=== PATIENT | female | born 1960 | race Caucasian/White ===

== ENCOUNTER 2025-08-17 07:29 | Inpatient (IN) ==
--- NOTE | 2025-08-17 08:03 | Emergency Department Note ---
History of Present Illness General Chief complaint: Knee Injury/Pain Stated complaint: LEFT KNEE PAIN Time Seen by Provider: 08/17/25 07:35 History of Present Illness Patient is a 65-year-old female with past medical history significant for prediabetes and dyslipidemia who presents to the emergency department accompanied by her for evaluation of left knee pain. Knee pain started 2 days ago, without inciting incident or trauma. She states "I just woke up with it." She took some ibuprofen, tried to elevate and rest the knee, but pain was getting worse and she was having trouble walking and putting pressure on it. She developed nausea, chills, headache and anorexia yesterday, but did not check her temperature. She has not developed any cold or URI symptoms. No vomiting, no urinary symptoms. No diarrhea. 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 She was seen at the [facility] office yesterday, no x-rays were performed, no interventions suggested but they were setting her up for a left leg ultrasound today. Patient has furosemide which she can use as needed for lower extremity edema, she did take a dose of this 2 days ago, but got some cramping in her calves afterwards. Upon arrival in the emergency department, she is found to be febrile, temperature 37.9 C orally. She is tachycardic in the 130s. [place] but denies any known tick bites recently. No skin rashes. No neck pain or stiffness. Home Medications Medication Instructions Recorded Confirmed Type cyanocobalamin (vitamin B-12) 1,000 mcg PO DAILY 08/17/25 08/17/25 History 1,000 mcg tablet furosemide 20 mg tablet 20 mg PO UD PRN Edema 08/17/25 08/17/25 History metformin 500 mg tablet 500 mg PO DAILY 08/17/25 08/17/25 History rosuvastatin 20 mg tablet 20 mg PO DAILY 08/17/25 08/17/25 History tramadol 50 mg tablet 50 mg PO Q6H PRN Pain 08/17/25 08/17/25 History Allergies Allergy/AdvReac Type Severity Reaction Status Date / Time No Known Allergies Allergy Mild Verified 02/27/08 13:09 Past Med/Surg History Problem List (Updated 08/17/25 @ 16:39 by Marycarmen Smith) Acute deep vein thrombosis (DVT) of left lower extremity (Acute) Acute pain of left knee (Acute) Leukocytosis (Acute) Tachycardia (Acute) Fever (Acute) SIRS (systemic inflammatory response syndrome) Acute DVT (deep venous thrombosis) Medical History Dyslipidemia Diabetes Surgical History H/O tubal ligation Social History Smoking Status: Never smoker Hx Alcohol Use: No Hx Substance Use: No Trim Mounter Required: No Beliefs That Will Affect Care: None Current Living Situation: Spouse Feels Safe at Home: Yes Assistive Devices: Glasses Review of Systems A total of 10 systems reviewed and were otherwise negative Physical Exam Vital Signs Vital Signs - 24 hr 08/17/25 07:32 08/17/25 07:57 08/17/25 08:00 Temperature 37.9 C H Temperature Source Oral Pulse Rate 137 H 132 H 132 H Pulse Rate from SpO2 Sensor 132 H Respiratory Rate 18 17 Respiratory Effort / Characteristics Non-Labored Spontaneous Respiratory Depth Normal Respiratory Pattern Regular Blood Pressure 128/82 Blood Pressure Mean 97 Pulse Oximetry 94 94 Oxygen Delivery Method Room Air Sepsis Recent Fever Within 48 Hours No Sepsis New/Unexplained Change in Mental Status No Sepsis Action Taken by Nursing No Action Required 08/17/25 08:07 08/17/25 08:15 08/17/25 08:17 Temperature Temperature Source Pulse Rate 132 H 128 H Pulse Rate from SpO2 Sensor 132 H Respiratory Rate 22 Respiratory Effort / Characteristics Respiratory Depth Respiratory Pattern Blood Pressure 131/82 Blood Pressure Mean 96 Pulse Oximetry 94 Oxygen Delivery Method Room Air Sepsis Recent Fever Within 48 Hours Sepsis New/Unexplained Change in Mental Status Sepsis Action Taken by Nursing 08/17/25 08:30 08/17/25 08:59 08/17/25 09:00 Temperature 37.5 C Temperature Source Oral Pulse Rate Pulse Rate from SpO2 Sensor Respiratory Rate Respiratory Effort / Characteristics Respiratory Depth Respiratory Pattern Blood Pressure 109/70 115/68 Blood Pressure Mean 81 80 Pulse Oximetry Oxygen Delivery Method Sepsis Recent Fever Within 48 Hours Sepsis New/Unexplained Change in Mental Status Sepsis Action Taken by Nursing 08/17/25 09:06 08/17/25 09:24 08/17/25 09:30 Temperature Temperature Source Pulse Rate 108 H 105 H Pulse Rate from SpO2 Sensor 108 H 106 H Respiratory Rate 23 18 Respiratory Effort / Characteristics Respiratory Depth Respiratory Pattern Blood Pressure 105/62 Blood Pressure Mean 72 Pulse Oximetry 91 93 Oxygen Delivery Method Room Air Room Air Sepsis Recent Fever Within 48 Hours Sepsis New/Unexplained Change in Mental Status Sepsis Action Taken by Nursing 08/17/25 09:33 08/17/25 10:00 08/17/25 10:00 Temperature Temperature Source Pulse Rate 102 H 112 H Pulse Rate from SpO2 Sensor 101 H 112 H Respiratory Rate 22 21 Respiratory Effort / Characteristics Respiratory Depth Respiratory Pattern Blood Pressure 136/82 Blood Pressure Mean 96 Pulse Oximetry 92 94 Oxygen Delivery Method Room Air Room Air Sepsis Recent Fever Within 48 Hours Sepsis New/Unexplained Change in Mental Status Sepsis Action Taken by Nursing CONSTITUTIONAL: Patient is a well-appearing 65-year-old female who is awake and alert and seated on the gurney. at the bedside. She is nontoxic in appearance. EYES: Pupils equal, round, reactive to light and accommodation. EOMs intact without nystagmus. Sclera are anicteric. ENT: Tympanic membranes intact, with normal landmarks. External canals are clear. Oral and nasopharynx are clear. Mucous membranes are moist, no lesions, tongue and gums appear normal. NECK: Supple without lymphadenopathy. No thyromegaly. No meningeal signs. Full active range of motion without discomfort. CARDIOVASCULAR: Tachycardic but regular. Peripheral pulses easy to palpable. RESPIRATORY: Breath sounds equal and clear to auscultation without wheezes, rales, or rhonchi heard. Full and equal chest expansion without accessory muscle use or retractions. GI: Bowel sounds are present. Abdomen is soft, nontender, nondistended. No organomegaly. No pulsatile masses. No guarding or rebound. MUSCULOSKELETAL: Examination of the left knee does not reveal any obvious deformity. There is no significant soft tissue swelling, no knee joint effusion. His skin is intact, without erythema, there is no increased warmth. Range of motion is full, with discomfort with full flexion. No significant ligamentous instability is appreciated. Calf is soft and nontender. No palpable cords. No pitting edema. No lymphangitic streaking. INTEGUMENTARY: No lesions or rash, normal skin turgor. NEUROLOGICAL: Alert, oriented, and cooperative. Cranial nerves, sensation and strength grossly intact. Pupils round, equal, and react to light, EOMs are full. LYMPH: No lymphadenopathy. Course Course The patient was seen and assessed as above. She has no old records at our facility for review. She presents to the emergency department for evaluation of acute left knee pain. On presentation, she was found to be febrile and tachycardic. She is endorsing some nausea, headache chills and anorexia as well. She did not know that she was febrile until arrival in the ED. IV lock was initiated and laboratory studies were collected. Chest x-ray, left knee x-ray and ultrasound of the left lower extremity were performed. EKG was obtained. She was treated with a liter bolus of normal saline solution and 1 g of Tylenol p.o. for fever. Case reviewed with attending physician, Dr. Madden who agrees with and collaborates with the ED workup. Diagnostics, as interpreted by me: Laboratory studies: Elevated white count at 2 22,200 with left shift. H&H normal. ESR elevated at 62. C-reactive protein elevated at 7.4. No significant electrolyte imbalance requiring correction. Renal functions are not elevated. Lactate normal at 1.8. Procalcitonin level is not elevated. Nasal swab for COVID/influenza/RSV negative. Lyme screen negative. Anaplasmosis and babesiosis smears are negative with PCR testing pending. ECG: Sinus tachycardia, 138 bpm, no acute ischemic changes, no old EKGs available for comparison Cardiac monitoring: An order was placed for continuous cardiac monitoring. The monitor shows a sinus tachycardia in the 130s per my interpretation. Imaging studies: Left lower extremity ultrasound notes nonocclusive thrombus in the left popliteal vein concerning for small DVT. Left knee x-ray mild degenerative changes, no acute fracture, no significant effusion. Chest x-ray clear, no infiltrate or consolidation. All laboratory and diagnostic imaging studies reviewed with Dr. Madden. She was treated with Zosyn IV. Nasal MRSA swab ordered. Laboratory and diagnostic imaging studies reviewed with the patient and her spouse at length, and given findings I do recommend admission for further care and workup. She was agreeable. Patient was reviewed with the [facility] hospitalist service. After discussion with them, an upper respiratory BioFire was performed, which per my interpretation was negative. They are agreeable to admit for inpatient care. Please refer to their orders for more information. Chronic conditions affecting care: Dyslipidemia, prediabetes Differential diagnosis: Viral illness, pneumonia, bronchitis, tickborne illness, septic joint, SIRS, sepsis, among others. Administered Medications Acetaminophen (Acetaminophen 500 Mg Tab) 1,000 mg PO Q8H JOSSELINE Stop: 09/16/25 15:59 Last Admin: 08/17/25 16:21 Dose: 1,000 mg Documented By: wilfredo Heparin Sodium/Dextrose (Heparin 02601 Unit/500 Ml D5w) 25,000 units in 500 mls @ 25 mls/hr IV .Q20H JOSSELINE; Protocol Stop: 09/16/25 11:16 Last Admin: 08/17/25 11:49 Dose: 1,250 units/hr, 25 mls/hr Documented By: PATRICK Co-signed By: QGV Insulin Aspart (Insulin Aspart Per Unit Charge) 0 units SC ACHS JOSSELINE Stop: 09/16/25 14:21 Last Admin: 08/17/25 14:59 Dose: Not Given Documented By: wilfredo Discontinued Medications Acetaminophen (Acetaminophen 500 Mg Tab) 1,000 mg PO NOW STA Stop: 08/17/25 07:56 Last Admin: 08/17/25 08:05 Dose: 1,000 mg Documented By: CHRISTIANO Heparin Sodium (Porcine) (Heparin Sod (Porcine) 1000 Unit/Ml) 1 units IV NOW ONE Stop: 08/17/25 11:17 Last Admin: 08/17/25 11:49 Dose: 6,000 units Documented By: PATRICK Co-signed By: QGV Heparin Sodium/Dextrose (Heparin Iv Adult Wt-Based Standard W/ Initial Bolus Protocol) 1 each IV NOW STA; Protocol Stop: 08/17/25 10:57 Last Admin: 08/17/25 11:56 Dose: Not Given Documented By: PATRICK Sodium Chloride (Nss) 1,000 mls @ 999 mls/hr IV .Q1H1M JOSSELINE Stop: 08/17/25 09:00 Last Infusion: 08/17/25 10:28 Dose: Infused Documented By: Admin: 08/17/25 08:04 Dose: 999 mls/hr Documented By: CHRISTIANO Piperacillin Sod/Tazobactam Sod (Zosyn) 4.5 gm in 100 mls @ 200 mls/hr IV NOW ONE; Protocol Stop: 08/17/25 09:50 Last Infusion: 08/17/25 10:37 Dose: Infused Documented By: Admin: 08/17/25 10:07 Dose: 200 mls/hr Documented By: CHRISTIANO Lactated Ringer's (Lr) 1,000 mls @ 999 mls/hr IV .Q1H1M ONE Stop: 08/17/25 16:07 Last Admin: 08/17/25 15:39 Dose: 999 mls/hr Documented By: wilfredo Ioversol (Optiray 320 125ml) 119 ml IV ONCE ONE Stop: 08/17/25 11:16 Last Admin: 08/17/25 11:15 Dose: 119 ml Documented By: NANDINI Ondansetron HCl (Ondansetron Inj 2 Mg/Ml 2 Ml Vial) 4 mg IV NOW STA Stop: 08/17/25 07:56 Last Admin: 08/17/25 08:05 Dose: 4 mg Documented By: CHRISTIANO Potassium Chloride (Potassium Chloride Crtab 20 Meq Tabcr) 40 meq PO NOW ONE Stop: 08/17/25 12:26 Last Admin: 08/17/25 13:25 Dose: 40 meq Documented By: NEHAL Medical Decision Making Differential Diagnosis See ED Course. Medical Records Attestation: I reviewed the patient's medical records. Home Medications Current Medication List: was personally reviewed by me Laboratory Data Attestation: I reviewed the patient's lab results. 08/17/25 08:06 08/17/25 09:15 Lab Results 08/17/25 08/17/25 08/17/25 Range/Units 08:06 08:06 08:06 WBC 22.27 H (4.8-10.8) K/ul RBC 4.89 (4.20-5.40) M/uL Hgb 14.3 (12.0-16.0) g/dl Hct 42.5 (37.0-47.0) % MCV 86.9 (80.0-100.0) fL MCH 29.2 (25.0-34.0) pg MCHC 33.6 (32.0-36.0) g/dL RDW Std Deviation 41.3 (36.4-46.3) fL RDW Coeff of Sabino 13.2 (11.5-14.5) % Plt Count 302 (130-400) K/uL MPV 9.5 (9.4-12.4) fL Immature Gran % (Auto) 0.5 % Neut % (Auto) 84.9 % Lymph % (Auto) 6.2 % Brooke % (Auto) 8.2 % Eos % (Auto) 0.0 % Baso % (Auto) 0.2 % Neut # (Auto) 18.90 H (1.40-6.50) K/uL Lymph # (Auto) 1.37 (1.20-3.40) K/uL Brooke # (Auto) 1.83 H (0.11-0.59) K/uL Eos # (Auto) 0.00 (0.00-0.50) K/uL Baso # (Auto) 0.05 (0.00-0.20) K/uL Immature Gran # (Auto) 0.12 (0.01-0.20) K/uL ESR 62 H (0-30) mm/hr PT 11.4 (9.0-12.0) Seconds INR 1.1 (0.9-1.1) APTT 26 (21-31) Seconds PTT Ratio 1.0 Sodium (136-145) mmol/L Potassium (3.5-5.1) mmol/L Chloride (98-107) mmol/L Carbon Dioxide (21-32) mmol/L Anion Gap (3-11) BUN (6-23) mg/dl Creatinine (0.6-1.2) mg/dl Est Cr Clr Drug Dosing ml/min eGFR BUN/Creatinine Ratio (10-20) Glucose (70-99(Fasting)) mg/dl Lactate (0.4-2.0) mmol/L Calcium (8.6-10.3) mg/dl Magnesium (1.7-2.4) mg/dl Total Bilirubin (0.2-1.0) mg/dl Direct Bilirubin (0-0.2) mg/dl AST (13-39) U/L ALT (7-52) U/L Alkaline Phosphatase (34-104) U/L Troponin I High Sens (0-14) pg/ml C-Reactive Protein (0-0.5) mg/dl Total Protein (6.0-8.3) gm/dl Albumin (3.4-5.0) gm/dl Procalcitonin 0.13 (0-0.5) ng/ml Nasal Screen MRSA (PCR) (Negative) Adenovirus (PCR) Not Detected (NotDetected) Anaplasma Smear See Comment Babesia Smear See Comment B. pertussis DNA (PCR) Not Detected (NotDetected) B.parapertussis DNA PCR Not Detected (NotDetected) Lyme Disease Screen Negative (Negative) C. pneumoniae DNA (PCR) Not Detected (NotDetected) Coronavirus OC43 (PCR) Not Detected (NotDetected) Coronavirus HKU1 (PCR) Not Detected (NotDetected) Coronavirus 229E (PCR) Not Detected (NotDetected) SARS-CoV-2 (PCR) NEGATIVE Not Detected (Negative) Coronavirus NL63 (PCR) Not Detected (NotDetected) Human Metapneumovir PCR Not Detected (NotDetected) Influenza Type A (PCR) Negative Not Detected (Neg) Influenza Type B (PCR) Negative (Neg) M. pneumoniae (PCR) (NotDetected) Parainfluenza 1 (PCR) (NotDetected) Parainfluenza 2 (PCR) (NotDetected) Parainfluenza 3 (PCR) (NotDetected) Parainfluenza 4 (PCR) (NotDetected) RSV (RT-PCR) (Neg) RSV (PCR) (NotDetected) Entero/Rhino (PCR) (NotDetected) 08/17/25 08/17/25 08/17/25 Range/Units 08:06 08:11 09:15 WBC (4.8-10.8) K/ul RBC (4.20-5.40) M/uL Hgb (12.0-16.0) g/dl Hct (37.0-47.0) % MCV (80.0-100.0) fL MCH (25.0-34.0) pg MCHC (32.0-36.0) g/dL RDW Std Deviation (36.4-46.3) fL RDW Coeff of Sabino (11.5-14.5) % Plt Count (130-400) K/uL MPV (9.4-12.4) fL Immature Gran % (Auto) % Neut % (Auto) % Lymph % (Auto) % Brooke % (Auto) % Eos % (Auto) % Baso % (Auto) % Neut # (Auto) (1.40-6.50) K/uL Lymph # (Auto) (1.20-3.40) K/uL Brooke # (Auto) (0.11-0.59) K/uL Eos # (Auto) (0.00-0.50) K/uL Baso # (Auto) (0.00-0.20) K/uL Immature Gran # (Auto) (0.01-0.20) K/uL ESR (0-30) mm/hr PT (9.0-12.0) Seconds INR (0.9-1.1) APTT (21-31) Seconds PTT Ratio Sodium 136 (136-145) mmol/L Potassium 3.4 L (3.5-5.1) mmol/L Chloride 101 (98-107) mmol/L Carbon Dioxide 26 (21-32) mmol/L Anion Gap 9 (3-11) BUN 24 H (6-23) mg/dl Creatinine 0.69 (0.6-1.2) mg/dl Est Cr Clr Drug Dosing 88.2 ml/min eGFR 95.66 BUN/Creatinine Ratio 34.8 H (10-20) Glucose 134 H (70-99(Fasting)) mg/dl Lactate 1.8 (0.4-2.0) mmol/L Calcium 8.5 L (8.6-10.3) mg/dl Magnesium 1.7 (1.7-2.4) mg/dl Total Bilirubin 0.8 (0.2-1.0) mg/dl Direct Bilirubin 0.1 (0-0.2) mg/dl AST 11 L (13-39) U/L ALT 13 (7-52) U/L Alkaline Phosphatase 77 (34-104) U/L Troponin I High Sens 6.0 (0-14) pg/ml C-Reactive Protein 7.43 H (0-0.5) mg/dl Total Protein 7.1 (6.0-8.3) gm/dl Albumin 3.9 (3.4-5.0) gm/dl Procalcitonin (0-0.5) ng/ml Nasal Screen MRSA (PCR) (Negative) Adenovirus (PCR) (NotDetected) Anaplasma Smear Babesia Smear B. pertussis DNA (PCR) (NotDetected) B.parapertussis DNA PCR (NotDetected) Lyme Disease Screen (Negative) C. pneumoniae DNA (PCR) (NotDetected) Coronavirus OC43 (PCR) (NotDetected) Coronavirus HKU1 (PCR) (NotDetected) Coronavirus 229E (PCR) (NotDetected) SARS-CoV-2 (PCR) (Negative) Coronavirus NL63 (PCR) (NotDetected) Human Metapneumovir PCR (NotDetected) Influenza Type A (PCR) (Neg) Influenza Type B (PCR) Not Detected (Neg) M. pneumoniae (PCR) Not Detected (NotDetected) Parainfluenza 1 (PCR) Not Detected (NotDetected) Parainfluenza 2 (PCR) Not Detected (NotDetected) Parainfluenza 3 (PCR) Not Detected (NotDetected) Parainfluenza 4 (PCR) Not Detected (NotDetected) RSV (RT-PCR) Negative (Neg) RSV (PCR) Not Detected (NotDetected) Entero/Rhino (PCR) Not Detected (NotDetected) 08/17/25 Range/Units 10:12 WBC (4.8-10.8) K/ul RBC (4.20-5.40) M/uL Hgb (12.0-16.0) g/dl Hct (37.0-47.0) % MCV (80.0-100.0) fL MCH (25.0-34.0) pg MCHC (32.0-36.0) g/dL RDW Std Deviation (36.4-46.3) fL RDW Coeff of Sabino (11.5-14.5) % Plt Count (130-400) K/uL MPV (9.4-12.4) fL Immature Gran % (Auto) % Neut % (Auto) % Lymph % (Auto) % Brooke % (Auto) % Eos % (Auto) % Baso % (Auto) % Neut # (Auto) (1.40-6.50) K/uL Lymph # (Auto) (1.20-3.40) K/uL Brooke # (Auto) (0.11-0.59) K/uL Eos # (Auto) (0.00-0.50) K/uL Baso # (Auto) (0.00-0.20) K/uL Immature Gran # (Auto) (0.01-0.20) K/uL ESR (0-30) mm/hr PT (9.0-12.0) Seconds INR (0.9-1.1) APTT (21-31) Seconds PTT Ratio Sodium (136-145) mmol/L Potassium (3.5-5.1) mmol/L Chloride (98-107) mmol/L Carbon Dioxide (21-32) mmol/L Anion Gap (3-11) BUN (6-23) mg/dl Creatinine (0.6-1.2) mg/dl Est Cr Clr Drug Dosing ml/min eGFR BUN/Creatinine Ratio (10-20) Glucose (70-99(Fasting)) mg/dl Lactate (0.4-2.0) mmol/L Calcium (8.6-10.3) mg/dl Magnesium (1.7-2.4) mg/dl Total Bilirubin (0.2-1.0) mg/dl Direct Bilirubin (0-0.2) mg/dl AST (13-39) U/L ALT (7-52) U/L Alkaline Phosphatase (34-104) U/L Troponin I High Sens (0-14) pg/ml C-Reactive Protein (0-0.5) mg/dl Total Protein (6.0-8.3) gm/dl Albumin (3.4-5.0) gm/dl Procalcitonin (0-0.5) ng/ml Nasal Screen MRSA (PCR) Negative (Negative) Adenovirus (PCR) (NotDetected) Anaplasma Smear Babesia Smear B. pertussis DNA (PCR) (NotDetected) B.parapertussis DNA PCR (NotDetected) Lyme Disease Screen (Negative) C. pneumoniae DNA (PCR) (NotDetected) Coronavirus OC43 (PCR) (NotDetected) Coronavirus HKU1 (PCR) (NotDetected) Coronavirus 229E (PCR) (NotDetected) SARS-CoV-2 (PCR) (Negative) Coronavirus NL63 (PCR) (NotDetected) Human Metapneumovir PCR (NotDetected) Influenza Type A (PCR) (Neg) Influenza Type B (PCR) (Neg) M. pneumoniae (PCR) (NotDetected) Parainfluenza 1 (PCR) (NotDetected) Parainfluenza 2 (PCR) (NotDetected) Parainfluenza 3 (PCR) (NotDetected) Parainfluenza 4 (PCR) (NotDetected) RSV (RT-PCR) (Neg) RSV (PCR) (NotDetected) Entero/Rhino (PCR) (NotDetected) Imaging Data Attestation: I personally reviewed and interpreted this imaging study as follows: Radiologist's Impression: Chest X-Ray 08/17/25 07:55 XR chest 1V portable CLINICAL HISTORY: Sepsis COMPARISON STUDY: None FINDINGS: Heart size and pulmonary vasculature are normal. No consolidation or pleural effusion. No pneumothorax. IMPRESSION: No acute findings. ACT 112: Negative or not required by law. Electronically signed by: Artie Ewing M.D. 08/17/2025 8:24 AM Knee X-Ray 08/17/25 07:55 XR knee LT 3V CLINICAL HISTORY: PAIN, NO INJURY COMPARISON: 08/15/2020 FINDINGS: There is a mild joint effusion. No fracture or dislocation seen. There is minimal osteoarthritis. IMPRESSION: No fracture seen. ACT 112: Negative or not required by law. Electronically signed by: Artie Ewing M.D. 08/17/2025 8:25 AM Venous Doppler Study 08/17/25 07:55 LEFT LOWER EXTREMITY VENOUS DOPPLER HISTORY: LEFT LEG PAIN AND SWELLING COMPARISON STUDY: None FINDINGS: There is a small amount of nonocclusive thrombus adjacent to valve proximal left popliteal vein. No other evidence of DVT seen at the left lower extremity. IMPRESSION: Small amount of nonocclusive DVT left popliteal vein. . ACT 112: Negative or not required by law. Electronically signed by: Artie Ewing M.D. 08/17/2025 9:11 AM MDM Narrative See ED Course. Impression & Plan Fever, Tachycardia, Leukocytosis, Acute pain of left knee, Acute deep vein thrombosis (DVT) of left lower extremity Discharge Plan Visit Data Chief Complaint: Knee Injury/Pain Stated Complaint: LEFT KNEE PAIN ED Provider: Luc Madden ED Midlevel Provider: Marycarmen Smith Discharge Problem: Fever, Tachycardia, Leukocytosis, Acute pain of left knee, Acute deep vein thrombosis (DVT) of left lower extremity Patient Disposition: Admitted As Inpatient Condition: Fair Discharge Instructions Interventions: ED Discharge Assessment Last Done: 08/17/25 13:56
[2025-08-17] MEDS: SODIUM CHLORIDE 0.9% 1,000 ML IV SCH (08:04)
[2025-08-17] MEDS: ACETAMINOPHEN 500 MG TAB PO STA (08:05)
[2025-08-17] MEDS: ONDANSETRON INJ 2 MG/ML 2 ML VIAL IV STA (08:05)
--- NOTE | 2025-08-17 08:25 | XRay Report ---
XR chest 1V portable CLINICAL HISTORY: Sepsis COMPARISON STUDY: None FINDINGS: Heart size and pulmonary vasculature are normal. No consolidation or pleural effusion. No p neumothorax. IMPRESSION: No acute findings. ACT 112: Negative or not required by law. Electronically signed by: Artie Ewing M.D. 08/17/2025 8:24 AM
--- NOTE | 2025-08-17 08:26 | XRay Report ---
XR knee LT 3V CLINICAL HISTORY: PAIN, NO INJURY COMPARISON: 08/15/2020 FINDINGS: There is a mild joint effusion. No fracture or dislocation seen. There is minimal osteoart hritis. IMPRESSION: No fracture seen. ACT 112: Negative or not required by law. Electronically signed by: Artie Ewing M.D. 08/17/2025 8:25 AM
[2025-08-17 08:30] LABS: Hematocrit (blood only) 42.5 % (37.0-47.0); Hemoglobin 14.3 g/dl (12.0-16.0); Immature Granulocytes # (auto) 0.12 K/uL (0.01-0.20); Immature Granulocytes % (auto) 0.5 %; Mean Corpuscular Hemoglobin 29.2 pg (25.0-34.0); Mean Corpuscular Volume 86.9 fL (80.0-100.0); Platelet Count 302 K/uL (130-400); RDW Standard Deviation 41.3 fL (36.4-46.3); Red Blood Count 4.89 M/uL (4.20-5.40); White Blood Count 22.27 K/ul (4.8-10.8)
[2025-08-17 08:51] LABS: Procalcitonin 0.13 ng/ml (0-0.5)
[2025-08-17 09:11] LABS: Influenza A virus by PCR Negative (Neg); Influenza B virus by PCR Negative (Neg); SARS CoV2 RNA(COVID-19) Ceph NEGATIVE (Negative)
--- NOTE | 2025-08-17 09:12 | Ultrasound Report ---
LEFT LOWER EXTREMITY VENOUS DOPPLER HISTORY: LEFT LEG PAIN AND SWELLING COMPARISON STUDY: None FINDINGS: There is a small amount of nonocclusive thrombus adjacent to valve proximal left popliteal vein. No other evidence of DVT seen at the left lower extremity. IMPRESSION: Small amount of nonocclusive DVT left popliteal vein. . ACT 112: Negative or not required by law. Electronically signed by: Artie Ewing M.D. 08/17/2025 9:11 AM
[2025-08-17 09:18] LABS: Lyme Screen Rflx Confirmation Negative (Negative)
[2025-08-17 09:57] LABS: Alanine Aminotransferase 13.0 U/L (7-52); Albumin Level 3.9 gm/dl (3.4-5.0); Alkaline Phosphatase 77.0 U/L (34-104); Anion Gap 9.0 (3-11); Bilirubin,Total 0.8 mg/dl (0.2-1.0); Blood Urea Nitrogen 24.0 mg/dl (6-23); Calcium 8.5 mg/dl (8.6-10.3); Carbon Dioxide 26.0 mmol/L (21-32); Chloride 101.0 mmol/L (98-107); Creatinine Clr Calc Pharmacy 88.2 ml/min; Glucose 134.0 mg/dl (70-99(Fasting)); Magnesium 1.7 mg/dl (1.7-2.4); Potassium 3.4 mmol/L (3.5-5.1); Sodium 136.0 mmol/L (136-145); Total Protein 7.1 gm/dl (6.0-8.3)
[2025-08-17] MEDS: PIPERACILLIN/TAZOBACTAM 4.5 GM/100 ML BAG IV ONE (10:07)
[2025-08-17] MEDS: OPTIRAY 320 125ml IV ONE (11:15)
[2025-08-17 11:25] LABS: Chlamydia pneumoniae PCR Not Detected (NotDetected); Coronavirus 229E PCR Not Detected (NotDetected); Coronavirus CoV-2 (COVID19)PCR Not Detected (NotDetected); Coronavirus HKU1 PCR Not Detected (NotDetected); Coronavirus NL63 PCR Not Detected (NotDetected); Coronavirus OC43PCR Not Detected (NotDetected); Human Metapneumovirus PCR Not Detected (NotDetected); Parainfluenza Virus 1 PCR Not Detected (NotDetected); Parainfluenza Virus 2 PCR Not Detected (NotDetected); Parainfluenza Virus 3 PCR Not Detected (NotDetected); Parainfluenza Virus 4 PCR Not Detected (NotDetected); Respiratory Syncytial VirusPCR Not Detected (NotDetected); Rhinovirus/Enterovirus PCR Not Detected (NotDetected)
--- NOTE | 2025-08-17 11:25 | CT Scan Report ---
CT ANGIOGRAM OF THE CHEST CLINICAL HISTORY: Sepsis. DVT. Chest pain. Evaluate for pulmonary embolus. COMPARISON STUDY: Chest radiograph performed earlier today. TECHNIQUE: Following the IV administration of 119 cc of Optiray 320, CT angiogram of the chest was pe rformed from the upper abdomen to the thoracic inlet utilizing the pulmonary embolus protocol. Images are reviewed in the axial, sagittal, and coronal planes. 3-D MIPS images are created and assessed. I V contrast was administered without complication. A dose lowering technique was utilized adhering to the principles of ALARA. CT DOSE: 890.56 mGy.cm FINDINGS: No pulmonary emboli are identified. There is no thoracic aortic dissection. The heart is mi ldly enlarged. There is no pericardial effusion. No enlarged thoracic lymph nodes are present. The ce ntral airways are patent. There is no pneumothorax or pleural effusion. There is no consolidation. No suspicious pulmonary nodules are present. Visualized portions of the upper abdomen are unremarkable. IMPRESSION: 1. No pulmonary emboli identified. 2. No acute intrathoracic findings. ACT 112: Negative or not required by law. Electronically signed by: Bebeto Smith M.D. 08/17/2025 11:22 AM
[2025-08-17 11:39] LABS: INR 1.1 (0.9-1.1); Partial Thromboplastin Time 26 Seconds (21-31); Prothrombin Time 11.4 Seconds (9.0-12.0)
[2025-08-17] MEDS: HEPARIN SOD (PORCINE) 1000 UNIT/ML IV ONE (11:49)
[2025-08-17] MEDS: HEPARIN 25000 UNIT/500 ML D5W 25,000 UNITS/500 ML BAG IV SCH (11:49)
[2025-08-17] MEDS: Heparin IV Adult Wt-Based Standard w/ INITIAL Bolus Protocol IV STA (11:56)
--- NOTE | 2025-08-17 12:29 | History & Physical Report ---
Date of Service August 17, 2025 Assessment & Plan (1) Acute DVT (deep venous thrombosis): (2) SIRS (systemic inflammatory response syndrome): Plan: Admit to [facility] with telemetry Patient presenting from home for evaluation of left knee pain. Upon presentation , patient had low-grade temp of 37.9 and tachycardic in the 130s. Labs show WBC 22K, ESR 62, CRP 7.4. BioFire negative, Lyme testing negative, initial Anaplasma and Babesia negative. CXR unremarkable. Left knee x-ray shows a mild joint effusion, otherwise unremarkable. LLE Doppler shows small amount of nonocclusive DVT left popliteal vein. Patient was given Tylenol, IV Zofran, IV Zosyn, IVF. SIRS criteria - tachycardia, leukocytosis, low-grade fever CTA chest negative for PE Suspect SIRS due to acute DVT. Low suspicion for other infectious source at this time. Blood cultures pending. UA pending although no urinary symptoms. Received IV zosyn in the ED, however will hold on additional antibiotics at this point. Start IV Heparin with likely transition to DOAC pending insurance approval. Patient reports daily heavt NSAID use - advised she will need to avoid NSAIDs due to anticoagulation. (3) Diabetes: Plan: HgbA1c 5.5 12/2024 Hold metformin and utilize NovoLog per protocol while hospitalized Update A1c with a.m. labs (4) Dyslipidemia: Plan: continue [employer] statin DVT PROPHYLAXIS IV heparin as above Patient seen in collaboration with Dr. Whalen. I spent a total of 75 minutes coordinating, documenting, and providing care for this patient excluding time spent in the performance of separately billed services. This included personally reviewing all current laboratories and imaging studies, medication reconciliation, outpatient chart review, and discussion with specialists. History of Present Illness Chief Complaint: Left knee pain Primary Care Provider: Yulissa Abraham PA-C 65-year-old female with PMH HLD, prediabetes, and other problems listed below who presents to the ED for evaluation of left knee pain. Patient reports her symptoms began 3 days ago. She was seen at her PCPs office, patient suspected she had a Lyons's cyst. Ultrasound was ordered however has not been completed. Patient presented to the ED due to ongoing left knee pain. Yesterday patient reports she had flulike symptoms with generalized fatigue, feeling feverish, and poor appetite. Patient reports a 2-hour car ride this previous weekend, denies any other recent extended travel. No known sick contacts. Pain is located in the left posterior knee. She denies chest pain, palpitations, shortness of breath. No lightheadedness, dizziness, diaphoresis, syncopal events. Denies abdominal pain, vomiting, diarrhea. No urinary symptoms. Upon presentation, patient had low-grade temp of 37.9 and tachycardic in the 130s. Labs show WBC 22K, ESR 62, CRP 7.4. BioFire negative, Lyme testing negative, initial Anaplasma and Babesia negative. CXR unremarkable. Left knee x-ray shows a mild joint effusion, otherwise unremarkable. LLE Doppler shows small amount of nonocclusive DVT left popliteal vein. patient was given Tylenol, IV Zofran, IV Zosyn, IVF. Allergies Allergy/AdvReac Type Severity Reaction Status Date / Time No Known Allergies Allergy Mild Verified 02/27/08 13:09 Home Medications Medication Instructions Recorded Confirmed Type cyanocobalamin (vitamin B-12) 1,000 mcg PO DAILY 08/17/25 08/17/25 History 1,000 mcg tablet furosemide 20 mg tablet 20 mg PO UD PRN Edema 08/17/25 08/17/25 History metformin 500 mg tablet 500 mg PO DAILY 08/17/25 08/17/25 History rosuvastatin 20 mg tablet 20 mg PO DAILY 08/17/25 08/17/25 History tramadol 50 mg tablet 50 mg PO Q6H PRN Pain 08/17/25 08/17/25 History Past Med/Surg History Problem List (Updated 08/17/25 @ 12:39 by MICHELLE Scott) SIRS (systemic inflammatory response syndrome) Acute DVT (deep venous thrombosis) Medical History Dyslipidemia Diabetes Surgical History H/O tubal ligation Social History Smoking Status: Never smoker Hx Alcohol Use: No Hx Substance Use: No The[employer] Specialist Required: No Beliefs That Will Affect Care: None Current Living Situation: Spouse Feels Safe at Home: Yes Assistive Devices: Glasses Physical Exam Constitutional: WD/WN, vitals as above no acute distress Respiratory: normal respiratory effort, lungs clear to auscultation Cardiovascular: Rate/Rhythm: regular rhythm and + tachycardic Vessels: normal peripheral pulses Extremities: no edema Gastrointestinal (Abdomen): normal bowel sounds, soft, nontender, no hepatosplenomegaly Skin: no rashes, warm and dry Neurologic: no focal motor deficits Psychiatric: A+Ox3, euthymic affect Results & Data Results & Data Vital Signs (Past 12 Hours) Vital Signs Temp Pulse Resp BP Pulse Ox O2 Del Method 08/17/25 12:22 103 H 08/17/25 12:00 108 H 17 94 Room Air 08/17/25 12:00 127/80 08/17/25 11:30 105 H 15 97 Room Air 08/17/25 11:30 115/69 08/17/25 11:00 102/68 08/17/25 10:54 101 H 21 92 Room Air 08/17/25 10:33 114 H 17 94 Room Air 08/17/25 10:30 96/75 L 08/17/25 10:27 109 H 19 92 Room Air 08/17/25 10:00 112 H 21 94 Room Air 08/17/25 10:00 136/82 08/17/25 09:33 102 H 22 92 Room Air 08/17/25 09:30 105/62 08/17/25 09:24 105 H 18 93 Room Air 08/17/25 09:06 108 H 23 91 Room Air 08/17/25 09:00 115/68 08/17/25 08:59 37.5 C 08/17/25 08:30 109/70 08/17/25 08:17 128 H 08/17/25 08:15 132 H 22 94 Room Air 08/17/25 08:07 131/82 08/17/25 08:00 132 H 08/17/25 07:57 132 H 17 94 08/17/25 07:32 37.9 C H 137 H 18 128/82 94 Room Air Laboratory Results Short CBC 08/17/25 Range/Units 08:06 WBC 22.27 H (4.8-10.8) K/ul Hgb 14.3 (12.0-16.0) g/dl Hct 42.5 (37.0-47.0) % Plt Count 302 (130-400) K/uL [facility] 08/17/25 09:15 Sodium 136 Potassium 3.4 L Chloride 101 Carbon Dioxide 26 BUN 24 H Creatinine 0.69 Glucose 134 H Calcium 8.5 L Liver Function 08/17/25 Range/Units 09:15 Total Bilirubin 0.8 (0.2-1.0) mg/dl Direct Bilirubin 0.1 (0-0.2) mg/dl AST 11 L (13-39) U/L ALT 13 (7-52) U/L Alkaline Phosphatase 77 (34-104) U/L Albumin 3.9 (3.4-5.0) gm/dl Diagnostic Findings Short CBC 08/17/25 Range/Units 08:06 WBC 22.27 H (4.8-10.8) K/ul Hgb 14.3 (12.0-16.0) g/dl Hct 42.5 (37.0-47.0) % Plt Count 302 (130-400) K/uL [facility] 08/17/25 09:15 Sodium 136 Potassium 3.4 L Chloride 101 Carbon Dioxide 26 BUN 24 H Creatinine 0.69 Glucose 134 H Calcium 8.5 L Liver Function 08/17/25 Range/Units 09:15 Total Bilirubin 0.8 (0.2-1.0) mg/dl Direct Bilirubin 0.1 (0-0.2) mg/dl AST 11 L (13-39) U/L ALT 13 (7-52) U/L Alkaline Phosphatase 77 (34-104) U/L Albumin 3.9 (3.4-5.0) gm/dl Medications Administered Chest X-Ray 08/17/25 07:55 XR chest 1V portable CLINICAL HISTORY: Sepsis COMPARISON STUDY: None FINDINGS: Heart size and pulmonary vasculature are normal. No consolidation or pleural effusion. No pneumothorax. IMPRESSION: No acute findings. ACT 112: Negative or not required by law. Electronically signed by: Artie Ewing M.D. 08/17/2025 8:24 AM Knee X-Ray 08/17/25 07:55 XR knee LT 3V CLINICAL HISTORY: PAIN, NO INJURY COMPARISON: 08/15/2020 FINDINGS: There is a mild joint effusion. No fracture or dislocation seen. There is minimal osteoarthritis. IMPRESSION: No fracture seen. ACT 112: Negative or not required by law. Electronically signed by: Artie Ewing M.D. 08/17/2025 8:25 AM Venous Doppler Study 08/17/25 07:55 LEFT LOWER EXTREMITY VENOUS DOPPLER HISTORY: LEFT LEG PAIN AND SWELLING COMPARISON STUDY: None FINDINGS: There is a small amount of nonocclusive thrombus adjacent to valve proximal left popliteal vein. No other evidence of DVT seen at the left lower extremity. IMPRESSION: Small amount of nonocclusive DVT left popliteal vein. . ACT 112: Negative or not required by law. Electronically signed by: Artie Ewing M.D. 08/17/2025 9:11 AM Chest CTA 08/17/25 10:52 CT ANGIOGRAM OF THE CHEST CLINICAL HISTORY: Sepsis. DVT. Chest pain. Evaluate for pulmonary embolus. COMPARISON STUDY: Chest radiograph performed earlier today. TECHNIQUE: Following the IV administration of 119 cc of Optiray 320, CT an giogram of the chest was performed from the upper abdomen to the thoracic inlet utilizing the pulmonary embolus protocol. Images are reviewed in the axial, sagittal, and coronal planes. 3-D MIPS images are created and assessed. IV contrast was administered without complication. A dose lowering technique was utilized adhering to the principles of ALARA. CT DOSE: 890.56 mGy.cm FINDINGS: No pulmonary emboli are identified. There is no thoracic aortic dissection. The heart is mildly enlarged. There is no pericardial effusion. No enlarged thoracic lymph nodes are present. The central airways are patent. There is no pneumothorax or pleural effusion. There is no consolidation. No suspicious pulmonary nodules are present. Visualized portions of the upper abdomen are unremarkable. IMPRESSION: 1. No pulmonary emboli identified. 2. No acute intrathoracic findings. ACT 112: Negative or not required by law. Electronically signed by: Bebeto Smith M.D. 08/17/2025 11:22 AM Code Status & VTE Plan VTE Prophylaxis Plan VTE Prophylaxis will be ordered: No Supervising Physician Co-Signing Physician Notes Patient seen and examined at bedside. Patient having substantial left knee and left leg pain. On exam, mildly tender to palpation left knee, slight pain with movement of left knee, tenderness to palpation of left calf. Leukocytosis, fever, and tachycardia noted suggestive of sepsis like syndrome, elevated ESR/CRP could be reactionary to DVT noted on US of leg, CT chest unrevealing for PE. UA grossly concerning for UTI. PESI score intermediate. Patient presenting for left leg pain, found to have DVT of left leg, with sepsis like syndrome of unclear etiology. Potential sources include DVT (could have fevers, tachycardia, but does seem out of proportion to DVT size),T, complicated UTI (but not symptomatic), left knee (albeit exam not convincing), abdomen/pelvic source. Start ceftriaxone for empiric coverage of complicated UTI, start heparin for 24 hours given higher risk DVT and transition to eliquis in AM, start LR maintenance fluids given sepsis like picture. If not improvement in AM, consider ortho consult for left knee joint aspiration and CT abdomen/pelvis with contrast to search for alternative sources. Follow up culture results. PT/OT ordered given difficulty walking. I have seen and discussed the case with the collaborating advanced practitioner. I agree with the above H&P. I have reviewed and confirmed the patients medical history, the findings on physical examination, and the patients diagnosis and treatment plan with Beverly MARTINEZ and agree with the information documented. I spent a total of 40 minutes coordinating, documenting, and providing care for this patient excluding time spent in the performance of separately billed services. All of the aforementioned completed outside of collaborating with the assigned advanced practitioner for a full treatment plan. I have reviewed the advanced practitioner's documentation, and I agree with, and take responsibility for the plan of care
[2025-08-17] MEDS: POTASSIUM CHLORIDE CRTAB 20 MEQ TABCR PO ONE (13:25)
[2025-08-17 13:28] LABS: Appearance Urine Turbid (Clear); Bacteria Urine Automated 4+ (None Seen); Cast Urine Automated 0-2 /lpf (0-2); Glucose Urine UA Negative (Negative); RBC Urine Automated >20 /hpf (0-2); WBC Urine Automated >50 /hpf (0-5)
--- NOTE | 2025-08-17 13:39 | Electrocardiogram Report ---
Test Reason : Blood Pressure : */* mmHG Vent. Rate : 138 BPM Atrial Rate : 138 BPM P-R Int : 130 ms QRS Dur : 78 ms QT Int : 298 ms P-R-T Axes : 24 27 51 degrees QTcB Int : 451 ms Sinus tachycardia Otherwise normal ECG Confirmed by Ciro Saenz ([id number]) on 08/17/2025 1:39:32 PM Referred By: REFERRED SELF Confirmed By: Ciro Saenz
[2025-08-17] MEDS ORDERED: GLUCOSE 40% GEL 15 GM TUBE PO PRN (14:22)
[2025-08-17] MEDS ORDERED: DEXTROSE 50% 50 ML SYRINGE IV PRN (14:22)
[2025-08-17] MEDS ORDERED: CARBOHYDRATES FOR HYPOGLYCEMIA PO PRN (14:22)
[2025-08-17] MEDS ORDERED: GLUCOSE 10 TAB/TUBE PO PRN (14:22)
[2025-08-17] MEDS ORDERED: GLUCAGON FOR INJ 1 MG VIAL SQ PRN (14:22)
[2025-08-17] MEDS: INSULIN ASPART PER UNIT CHARGE SC SCH (14:59)
[2025-08-17] MEDS: LACTATED RINGER'S 1,000 ML IV ONE (15:39)
--- NOTE | 2025-08-17 15:43 | Communication Note ---
Date of Service: August 17, 2025 UA reviewed -- suggestive of UTI -- although patient denies urinary symptoms Ongoing tachycardia and low grade fever - will give an additional 1L IVF and start IV ceftriaxone If not improving, consider CT abd/pelvis and/or ortho eval for left knee septic arthritis - although exam is not convincing and only minimal effusion on XR. MICHELLE Scott Hospitalist
[2025-08-17] MEDS: ACETAMINOPHEN 500 MG TAB PO SCH (16:21)
[2025-08-17] MEDS ORDERED: VANCOMYCIN CONSULT ACTIVE PRN (16:48)
[2025-08-17] MEDS: cefTRIAXone SODIUM 2,000 MG/50 ML BAG IV SCH (17:01)
[2025-08-17] MEDS: OPTIRAY 320 100ml IV ONE (18:03)
[2025-08-17] MEDS: VANCOMYCIN HCL 2,000 MG in SODIUM CHLORIDE 0.9% 500 ML IV ONE (18:09)
[2025-08-17 18:25] LABS: ANTI-Xa, UFH(UnfractionatedHep 0.21 IU/ml (0.3-0.7)
--- NOTE | 2025-08-17 18:52 | CT Scan Report ---
EXAMINATION: CT of the abdomen and pelvis performed after the administration of IV contrast TECHNIQUE: Helical CT images from the lung bases through the symphysis pubis were obtained with contrast. Coronal and sagittal reformatted images were generated at a workstation for further assessment. Dose reduction techniques were achieved by using automatic exposure control and/or adjustment of mA and/or kV according to patient size and/or use of iterative reconstruction technique. COMPARISON: None HISTORY: Sepsis FINDINGS: Lower chest: No consolidation. No pleural effusion or pneumothorax. Liver: No suspicious liver lesions. Portal veins appear patent. Gallbladder: No gallstones. No evidence of acute cholecystitis. Spleen: Normal size. Pancreas: No suspicious pancreatic lesions. The pancreatic duct is not dilated. Adrenal glands: No adrenal nodules. 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 The superior moiety demonstrates severe atrophy with near complete loss of the renal cortex, and a prominently dilated pelvocaliceal system. The upper moiety ureter is also markedly dilated throughout. The upper portion of this ureter demonstrates prominent wall thickening, with severe stenosis of the lumen, and inflammatory fat stranding. 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 The left kidney demonstrates no hydronephrosis. There is a prominent area of striated hypoenhancement at the inferior pole of the left kidney. Bladder / Pelvic organs: Unremarkable. Bowel: No bowel obstruction. No abnormal bowel wall thickening. The appendix is unremarkable. Lymph nodes: No retroperitoneal, mesenteric, or pelvic lymphadenopathy. Peritoneum / Retroperitoneum: No free fluid or air within the abdomen. Vessels: No infrarenal aortic aneurysm. Bones and soft tissues: No suspicious lesion in the bones. 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 The upper portion of this ureter also demonstrates marked wall thickening and inflammatory fat stranding, which may be due to infective ureteritis, and with urothelial carcinoma not excluded. A striated area of hypoenhancement at the inferior left kidney, additionally is concerning for pyelonephritis. Electronically signed by Emmanuel Kelley 08-17-2025 6:52 PM
[2025-08-18 01:28] LABS: ANTI-Xa, UFH(UnfractionatedHep 0.17 IU/ml (0.3-0.7)
[2025-08-18] MEDS: HEPARIN SOD (PORCINE) 1000 UNIT/ML IV ONE ×2 (02:02→23:02)
[2025-08-18 02:16] LABS: A calco-baum cmplx NotReported Not Detected (NotDetected); Bact fragilis Not Reported Not Detected (NotDetected); Blood Culture Id Panel See PCR Comment (NotDetected); C auris Not Reported Not Detected (NotDetected); CTX-M Resistant Gene Not Detected (NotDetected); Calbicans Not Reported Not Detected (NotDetected); Candida glabrata Not Reported Not Detected (NotDetected); Candida krusei Not Reported Not Detected (NotDetected); Cneoformans/gatti Not Reported Not Detected (NotDetected); Cparapsilosis Not Reported Not Detected (NotDetected); Ctropicalis Not Reported Not Detected (NotDetected); E cloacae compx Not Reported Not Detected (NotDetected); Efaecalis Not Reported Not Detected (NotDetected); Efaecium Not Reported Not Detected (NotDetected); Enterobacterales DETECTED (NotDetected); Enterobacterales Not Reported DETECTED (NotDetected); Escherichia coli Not Reported DETECTED (NotDetected); H influenzae Not Reported Not Detected (NotDetected); IMP Resistant Gene Not Detected (NotDetected); K aerogenes Not Reported Not Detected (NotDetected); KPC Resistant Gene Not Detected (NotDetected); Koxytoca Not Reported Not Detected (NotDetected); Kpneumoniae grp Not Reported Not Detected (NotDetected); Lmonocyt Not Reported Not Detected (NotDetected); N meningitidis Not Reported Not Detected (NotDetected); NDM Resistant Gene Not Detected (NotDetected); OXA 48 Like Resistant Gene Not Detected (NotDetected); P aeruginosa Not Reported Not Detected (NotDetected); Proteus spp Not Reported Not Detected (NotDetected); Salmonella spp Not Reported Not Detected (NotDetected); Staph lugdunensis Not Reported Not Detected (NotDetected); Staph spp. Not Reported Not Detected (NotDetected); Staphaureus Not Reported Not Detected (NotDetected); Staphepi Not Reported Not Detected (NotDetected); Stenmaltophilia Not Reported Not Detected (NotDetected); Strep agal(GrpB) Not Reported Not Detected (NotDetected); Strep pneum Not Reported Not Detected (NotDetected); Strep pyog (GrpA) Not Reported Not Detected (NotDetected); Strep spp Not Reported Not Detected (NotDetected); VIM Resistant Gene Not Detected (NotDetected); mcr-1 Colistin Resistant Gene Not Detected (NotDetected)
[2025-08-18 07:25] LABS: Hematocrit (blood only) 34.0 % (37.0-47.0); Hemoglobin 11.0 g/dl (12.0-16.0); Mean Corpuscular Hemoglobin 28.5 pg (25.0-34.0); Mean Corpuscular Volume 88.1 fL (80.0-100.0); Platelet Count 189 K/uL (130-400); RDW Standard Deviation 42.4 fL (36.4-46.3); Red Blood Count 3.86 M/uL (4.20-5.40); White Blood Count 16.57 K/ul (4.8-10.8)
[2025-08-18 07:36] LABS: Anion Gap 8.0 (3-11); Blood Urea Nitrogen 14.0 mg/dl (6-23); Calcium 8.6 mg/dl (8.6-10.3); Carbon Dioxide 27.0 mmol/L (21-32); Chloride 100.0 mmol/L (98-107); Creatinine Clr Calc Pharmacy 99.5 ml/min; Glucose 121.0 mg/dl (70-99(Fasting)); Hemoglobin A1C 5.8 % (4.5-5.6); Potassium 3.3 mmol/L (3.5-5.1); Sodium 135.0 mmol/L (136-145)
[2025-08-18 07:38] LABS: ANTI-Xa, UFH(UnfractionatedHep 0.25 IU/ml (0.3-0.7)
--- NOTE | 2025-08-18 08:22 | Hospitalist Progress Note ---
Date of Service August 18, 2025 Assessment & Plan (1) Sepsis: (2) Bacteremia: (3) Pyelonephritis: Plan: Patient presenting from home for evaluation of left knee pain (behind the knee). Upon presentation, patient febrile, and tachycardic in the 130s. Labs show WBC 22K, ESR 62, CRP 7.4. BioFire negative, Lyme testing negative, initial Anaplasma and Babesia negative. CXR unremarkable. CTA chest negative for PE Left knee x-ray shows a mild joint effusion, otherwise unremarkable. LLE Doppler shows small amount of nonocclusive DVT left popliteal vein. Was started on iv heparin. Plan to transition to DOAC. Patient reports daily heavy NSAID use - advised she will need to avoid NSAIDs due to anticoagulation. 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 The upper portion of this ureter also demonstrates marked wall thickening and inflammatory fat stranding, which may be due to infective ureteritis, and with urothelial carcinoma not excluded. A striated area of hypoenhancement at the inferior left kidney, additionally is concerning for pyelonephritis. Received IV zosyn in the ED. Was transitioned to ceftriaxone and vancomycin on admission. 08/18 Currently pt still febrile and tachycardic. Final results of cultures pending Repeat blood cultures ordered Will need to treat acute infection, then plan to involve urology for further assessment given abnormal CT findings Pt reports she was seen at [facility] for urology in the past, not recently. 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 Pt aware to follow up w/ urology. Diabetes HgbA1c 5.5 % 12/2024, current 5.8% Hold metformin and utilize NovoLog per protocol while hospitalized Dyslipidemia - continue home statin Admission and Anticipated Discharge Date Admission Date: August 17, 2025 Subjective Pt seen in follow up of sepsis, bacteremia, pyelonephritis Presented with knee pain (behind the knee), was found to have small DVT Currently lying in bed in NAD, seen ambulating to the bathroom by herself, says she feels ok Febrile and tachycardic this AM though Denies any chest pain, shortness of breath or abd. pain. Had fever at home. 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 and hx of stones Review of Systems Review of Systems: All systems reviewed & are unremarkable except as noted in Subjective Physical Exam Physical Exam: Constitutional: WD/WN F in NAD Respiratory: normal respiratory effort, lungs nichole ar to auscultation Cardiovascular: Rate/Rhythm: regul ar rhythm and + ta chycardic Extremi ties: no edema Gastrointestinal ( Abdomen): normal bowel sound s, soft, nontender Skin: no rashes, warm an d dry Neurologic: awake, alert, answ ers appropriately, pleasant, speech fluent, moves extr emities Psychiatric: A+Ox3, euthymic af fect Results & Data Results & Data Vital Signs (Past 12 Hours) Vital Signs Temp Pulse Pulse Resp BP Pulse Ox O2 Del Method 08/18/25 07:44 38.0 C H 114 H 16 126/84 91 Room Air 08/18/25 07:17 108 H 08/18/25 04:06 37.5 C 82 16 116/68 92 Room Air 08/17/25 23:21 38 C H 114 H 16 113/68 91 Room Air 08/17/25 22:09 113 H Laboratory Results 08/18/25 08/18/25 08/18/25 Range/Units 08:00 06:48 00:51 WBC 16.57 H (4.8-10.8) K/ul RBC 3.86 L (4.20-5.40) M/uL Hgb 11.0 L D (12.0-16.0) g/dl Hct 34.0 L (37.0-47.0) % MCV 88.1 (80.0-100.0) fL MCH 28.5 (25.0-34.0) pg MCHC 32.4 (32.0-36.0) g/dL RDW Std Deviation 42.4 (36.4-46.3) fL RDW Coeff of Sabino 13.2 (11.5-14.5) % Plt Count 189 (130-400) K/uL MPV 9.9 (9.4-12.4) fL Immature Gran % (Auto) % Neut % (Auto) % Lymph % (Auto) % Mel[place] % (Auto) % Eos % (Auto) % Baso % (Auto) % Neut # (Auto) (1.40-6.50) K/uL Lymph # (Auto) (1.20-3.40) K/uL Mellette # (Auto) (0.11-0.59) K/uL Eos # (Auto) (0.00-0.50) K/uL Baso # (Auto) (0.00-0.20) K/uL Immature Gran # (Auto) (0.01-0.20) K/uL ESR (0-30) mm/hr PT (9.0-12.0) Seconds INR (0.9-1.1) APTT (21-31) Seconds PTT Ratio Heparin Anti-Xa, Unfract 0.25 L 0.17 L (0.3-0.7) IU/ml Sodium 135 L (136-145) mmol/L Potassium 3.3 L (3.5-5.1) mmol/L Chloride 100 (98-107) mmol/L Carbon Dioxide 27 (21-32) mmol/L Anion Gap 8 (3-11) BUN 14 (6-23) mg/dl Creatinine 0.59 L (0.6-1.2) mg/dl Est Cr Clr Drug Dosing 99.5 ml/min eGFR 99.33 BUN/Creatinine Ratio 23.7 H (10-20) Glucose 121 H (70-99(Fasting)) mg/dl POC Glucose 115 H (70-99) mg/dl Estimat Average Glucose 120 mg/dl Hemoglobin A1c 5.8 H (4.5-5.6) % Lactate (0.4-2.0) mmol/L Calcium 8.6 (8.6-10.3) mg/dl Magnesium (1.7-2.4) mg/dl Total Bilirubin (0.2-1.0) mg/dl Direct Bilirubin (0-0.2) mg/dl AST (13-39) U/L ALT (7-52) U/L Alkaline Phosphatase (34-104) U/L Troponin I High Sens (0-14) pg/ml C-Reactive Protein (0-0.5) mg/dl Total Protein (6.0-8.3) gm/dl Albumin (3.4-5.0) gm/dl Procalcitonin (0-0.5) ng/ml Urine Color Urine Appearance (Clear) Urine pH (4.5-7.5) Ur Specific [place] (1.000-1.030) Urine Protein (Negative) Urine Glucose (UA) (Negative) Urine Ketones (Negative) Urine Blood (Negative) Urine Nitrite (Negative) Urine Bilirubin (Negative) Urine Urobilinogen (Negative) Ur Leukocyte Esterase (Negative) Urine WBC (Auto) (0-5) /hpf Urine RBC (Auto) (0-2) /hpf U Hyaline Cast (Auto) (0-2) /lpf U Epithel Cells (Auto) (0-2) /hpf Urine Bacteria (Auto) (None Seen) Urine Comment Nasal Screen MRSA (PCR) (Negative) Adenovirus (PCR) (NotDetected) Anaplasma Smear A. phagocytophilum DNA Babesia Smear Babesia microti DNA PCR B. pertussis DNA (PCR) (NotDetected) B.parapertussis DNA PCR (NotDetected) Lyme Disease Screen (Negative) C. pneumoniae DNA (PCR) (NotDetected) Coronavirus OC43 (PCR) (NotDetected) Coronavirus HKU1 (PCR) (NotDetected) Coronavirus 229E (PCR) (NotDetected) SARS-CoV-2 (PCR) (Negative) Coronavirus NL63 (PCR) (NotDetected) Ehrlichia DNA (PCR) Enterobacterales (PCR) (NotDetected) E. coli (PCR) (NotDetected) Human Metapneumovir PCR (NotDetected) Influenza Type A (PCR) (Neg) Influenza Type B (PCR) (Neg) M. pneumoniae (PCR) (NotDetected) Parainfluenza 1 (PCR) (NotDetected) Parainfluenza 2 (PCR) (NotDetected) Parainfluenza 3 (PCR) (NotDetected) Parainfluenza 4 (PCR) (NotDetected) RSV (RT-PCR) (Neg) RSV (PCR) (NotDetected) Entero/Rhino (PCR) (NotDetected) mcr-1 Colistin Res Gene PCR (NotDetected) blaIMP Car res Gene PCR (NotDetected) KPC-Carbap Res Gene PCR (NotDetected) blaNDM Car Res Gene PCR (NotDetected) OXA-48 Carbapenem Resis Gene (PCR) (NotDetected) blaVIM Car Res Gene PCR (NotDetected) CTX-M Gene Resistance (PCR) (NotDetected) Bld Cult ID Panel PCR (NotDetected) 08/17/25 08/17/25 08/17/25 Range/Units 20:07 17:39 17:05 WBC (4.8-10.8) K/ul RBC (4.20-5.40) M/uL Hgb (12.0-16.0) g/dl Hct (37.0-47.0) % MCV (80.0-100.0) fL MCH (25.0-34.0) pg MCHC (32.0-36.0) g/dL RDW Std Deviation (36.4-46.3) fL RDW Coeff of Sabino (11.5-14.5) % Plt Count (130-400) K/uL MPV (9.4-12.4) fL Immature Gran % (Auto) % Neut % (Auto) % Lymph % (Auto) % [place] % (Auto) % Eos % (Auto) % Baso % (Auto) % Neut # (Auto) (1.40-6.50) K/uL Lymph # (Auto) (1.20-3.40) K/uL [place] # (Auto) (0.11-0.59) K/uL Eos # (Auto) (0.00-0.50) K/uL Baso # (Auto) (0.00-0.20) K/uL Immature Gran # (Auto) (0.01-0.20) K/uL ESR (0-30) mm/hr PT (9.0-12.0) Seconds INR (0.9-1.1) APTT (21-31) Seconds PTT Ratio Heparin Anti-Xa, Unfract 0.21 L (0.3-0.7) IU/ml Sodium (136-145) mmol/L Potassium (3.5-5.1) mmol/L Chloride (98-107) mmol/L Carbon Dioxide (21-32) mmol/L Anion Gap (3-11) BUN (6-23) mg/dl Creatinine (0.6-1.2) mg/dl Est Cr Clr Drug Dosing ml/min eGFR BUN/Creatinine Ratio (10-20) Glucose (70-99(Fasting)) mg/dl POC Glucose 114 H (70-99) mg/dl Estimat Average Glucose mg/dl Hemoglobin A1c (4.5-5.6) % Lactate (0.4-2.0) mmol/L Calcium (8.6-10.3) mg/dl Magnesium (1.7-2.4) mg/dl Total Bilirubin (0.2-1.0) mg/dl Direct Bilirubin (0-0.2) mg/dl AST (13-39) U/L ALT (7-52) U/L Alkaline Phosphatase (34-104) U/L Troponin I High Sens (0-14) pg/ml C-Reactive Protein (0-0.5) mg/dl Total Protein (6.0-8.3) gm/dl Albumin (3.4-5.0) gm/dl Procalcitonin (0-0.5) ng/ml Urine Color Urine Appearance (Clear) Urine pH (4.5-7.5) Ur Specific [place] (1.000-1.030) Urine Protein (Negative) Urine Glucose (UA) (Negative) Urine Ketones (Negative) Urine Blood (Negative) Urine Nitrite (Negative) Urine Bilirubin (Negative) Urine Urobilinogen (Negative) Ur Leukocyte Esterase (Negative) Urine WBC (Auto) (0-5) /hpf Urine RBC (Auto) (0-2) /hpf U Hyaline Cast (Auto) (0-2) /lpf U Epithel Cells (Auto) (0-2) /hpf Urine Bacteria (Auto) (None Seen) Urine Comment Nasal Screen MRSA (PCR) Negative (Negative) Adenovirus (PCR) (NotDetected) Anaplasma Smear A. phagocytophilum DNA Babesia Smear Babesia microti DNA PCR B. pertussis DNA (PCR) (NotDetected) B.parapertussis DNA PCR (NotDetected) Lyme Disease Screen (Negative) C. pneumoniae DNA (PCR) (NotDetected) Coronavirus OC43 (PCR) (NotDetected) Coronavirus HKU1 (PCR) (NotDetected) Coronavirus 229E (PCR) (NotDetected) SARS-CoV-2 (PCR) (Negative) Coronavirus NL63 (PCR) (NotDetected) Ehrlichia DNA (PCR) Enterobacterales (PCR) (NotDetected) E. coli (PCR) (NotDetected) Human Metapneumovir PCR (NotDetected) Influenza Type A (PCR) (Neg) Influenza Type B (PCR) (Neg) M. pneumoniae (PCR) (NotDetected) Parainfluenza 1 (PCR) (NotDetected) Parainfluenza 2 (PCR) (NotDetected) Parainfluenza 3 (PCR) (NotDetected) Parainfluenza 4 (PCR) (NotDetected) RSV (RT-PCR) (Neg) RSV (PCR) (NotDetected) Entero/Rhino (PCR) (NotDetected) mcr-1 Colistin Res Gene PCR (NotDetected) blaIMP Car res Gene PCR (NotDetected) KPC-Carbap Res Gene PCR (NotDetected) blaNDM Car Res Gene PCR (NotDetected) OXA-48 Carbapenem Resis Gene (PCR) (NotDetected) blaVIM Car Res Gene PCR (NotDetected) CTX-M Gene Resistance (PCR) (NotDetected) Bld Cult ID Panel PCR (NotDetected) 08/17/25 08/17/25 08/17/25 Range/Units 16:47 14:37 13:05 WBC (4.8-10.8) K/ul RBC (4.20-5.40) M/uL Hgb (12.0-16.0) g/dl Hct (37.0-47.0) % MCV (80.0-100.0) fL MCH (25.0-34.0) pg MCHC (32.0-36.0) g/dL RDW Std Deviation (36.4-46.3) fL RDW Coeff of Sabino (11.5-14.5) % Plt Count (130-400) K/uL MPV (9.4-12.4) fL Immature Gran % (Auto) % Neut % (Auto) % Lymph % (Auto) % [place] % (Auto) % Eos % (Auto) % Baso % (Auto) % Neut # (Auto) (1.40-6.50) K/uL Lymph # (Auto) (1.20-3.40) K/uL [place] # (Auto) (0.11-0.59) K/uL Eos # (Auto) (0.00-0.50) K/uL Baso # (Auto) (0.00-0.20) K/uL Immature Gran # (Auto) (0.01-0.20) K/uL ESR (0-30) mm/hr PT (9.0-12.0) Seconds INR (0.9-1.1) APTT (21-31) Seconds PTT Ratio Heparin Anti-Xa, Unfract (0.3-0.7) IU/ml Sodium (136-145) mmol/L Potassium (3.5-5.1) mmol/L Chloride (98-107) mmol/L Carbon Dioxide (21-32) mmol/L Anion Gap (3-11) BUN (6-23) mg/dl Creatinine (0.6-1.2) mg/dl Est Cr Clr Drug Dosing ml/min eGFR BUN/Creatinine Ratio (10-20) Glucose (70-99(Fasting)) mg/dl POC Glucose 137 H 131 H (70-99) mg/dl Estimat Average Glucose mg/dl Hemoglobin A1c (4.5-5.6) % Lactate (0.4-2.0) mmol/L Calcium (8.6-10.3) mg/dl Magnesium (1.7-2.4) mg/dl Total Bilirubin (0.2-1.0) mg/dl Direct Bilirubin (0-0.2) mg/dl AST (13-39) U/L ALT (7-52) U/L Alkaline Phosphatase (34-104) U/L Troponin I High Sens (0-14) pg/ml C-Reactive Protein (0-0.5) mg/dl Total Protein (6.0-8.3) gm/dl Albumin (3.4-5.0) gm/dl Procalcitonin (0-0.5) ng/ml Urine Color Yellow Urine Appearance Turbid A (Clear) Urine pH 6.0 (4.5-7.5) Ur Specific [place] > 1.045 H (1.000-1.030) Urine Protein 1+ H (Negative) Urine Glucose (UA) Negative (Negative) Urine Ketones Negative (Negative) Urine Blood 2+ H (Negative) Urine Nitrite Positive A (Negative) Urine Bilirubin Negative (Negative) Urine Urobilinogen Negative (Negative) Ur Leukocyte Esterase 3+ H (Negative) Urine WBC (Auto) >50 H (0-5) /hpf Urine RBC (Auto) >20 H (0-2) /hpf U Hyaline Cast (Auto) 0-2 (0-2) /lpf U Epithel Cells (Auto) 3-5 H (0-2) /hpf Urine Bacteria (Auto) 4+ H (None Seen) Urine Comment Nasal Screen MRSA (PCR) (Negative) Adenovirus (PCR) (NotDetected) Anaplasma Smear A. phagocytophilum DNA Babesia Smear Babesia microti DNA PCR B. pertussis DNA (PCR) (NotDetected) B.parapertussis DNA PCR (NotDetected) Lyme Disease Screen (Negative) C. pneumoniae DNA (PCR) (NotDetected) Coronavirus OC43 (PCR) (NotDetected) Coronavirus HKU1 (PCR) (NotDetected) Coronavirus 229E (PCR) (NotDetected) SARS-CoV-2 (PCR) (Negative) Coronavirus NL63 (PCR) (NotDetected) Ehrlich[place] DNA (PCR) Enterobacterales (PCR) (NotDetected) E. coli (PCR) (NotDetected) Human Metapneumovir PCR (NotDetected) Influenza Type A (PCR) (Neg) Influenza Type B (PCR) (Neg) M. pneumoniae (PCR) (NotDetected) Parainfluenza 1 (PCR) (NotDetected) Parainfluenza 2 (PCR) (NotDetected) Parainfluenza 3 (PCR) (NotDetected) Parainfluenza 4 (PCR) (NotDetected) RSV (RT-PCR) (Neg) RSV (PCR) (NotDetected) Entero/Rhino (PCR) (NotDetected) mcr-1 Colistin Res Gene PCR (NotDetected) blaIMP Car res Gene PCR (NotDetected) KPC-Carbap Res Gene PCR (NotDetected) blaNDM Car Res Gene PCR (NotDetected) OXA-48 Carbapenem Resis Gene (PCR) (NotDetected) blaVIM Car Res Gene PCR (NotDetected) CTX-M Gene Resistance (PCR) (NotDetected) Bld Cult ID Panel PCR (NotDetected) 08/17/25 08/17/25 08/17/25 Range/Units 10:12 09:15 08:11 WBC (4.8-10.8) K/ul RBC (4.20-5.40) M/uL Hgb (12.0-16.0) g/dl Hct (37.0-47.0) % MCV (80.0-100.0) fL MCH (25.0-34.0) pg MCHC (32.0-36.0) g/dL RDW Std Deviation (36.4-46.3) fL RDW Coeff of Sabino (11.5-14.5) % Plt Count (130-400) K/uL MPV (9.4-12.4) fL Immature Gran % (Auto) % Neut % (Auto) % Lymph % (Auto) % [place] % (Auto) % Eos % (Auto) % Baso % (Auto) % Neut # (Auto) (1.40-6.50) K/uL Lymph # (Auto) (1.20-3.40) K/uL [place] # (Auto) (0.11-0.59) K/uL Eos # (Auto) (0.00-0.50) K/uL Baso # (Auto) (0.00-0.20) K/uL Immature Gran # (Auto) (0.01-0.20) K/uL ESR (0-30) mm/hr PT (9.0-12.0) Seconds INR (0.9-1.1) APTT (21-31) Seconds PTT Ratio Heparin Anti-Xa, Unfract (0.3-0.7) IU/ml Sodium 136 (136-145) mmol/L Potassium 3.4 L (3.5-5.1) mmol/L Chloride 101 (98-107) mmol/L Carbon Dioxide 26 (21-32) mmol/L Anion Gap 9 (3-11) BUN 24 H (6-23) mg/dl Creatinine 0.69 (0.6-1.2) mg/dl Est Cr Clr Drug Dosing 88.2 ml/min eGFR 95.66 BUN/Creatinine Ratio 34.8 H (10-20) Glucose 134 H (70-99(Fasting)) mg/dl POC Glucose (70-99) mg/dl Estimat Average Glucose mg/dl Hemoglobin A1c (4.5-5.6) % Lactate 1.8 (0.4-2.0) mmol/L Calcium 8.5 L (8.6-10.3) mg/dl Magnesium 1.7 (1.7-2.4) mg/dl Total Bilirubin 0.8 (0.2-1.0) mg/dl Direct Bilirubin 0.1 (0-0.2) mg/dl AST 11 L (13-39) U/L ALT 13 (7-52) U/L Alkaline Phosphatase 77 (34-104) U/L Troponin I High Sens 6.0 (0-14) pg/ml C-Reactive Protein 7.43 H (0-0.5) mg/dl Total Protein 7.1 (6.0-8.3) gm/dl Albumin 3.9 (3.4-5.0) gm/dl Procalcitonin (0-0.5) ng/ml Urine Color Urine Appearance (Clear) Urine pH (4.5-7.5) Ur Specific [place] (1.000-1.030) Urine Protein (Negative) Urine Glucose (UA) (Negative) Urine Ketones (Negative) Urine Blood (Negative) Urine Nitrite (Negative) Urine Bilirubin (Negative) Urine Urobilinogen (Negative) Ur Leukocyte Esterase (Negative) Urine WBC (Auto) (0-5) /hpf Urine RBC (Auto) (0-2) /hpf U Hyaline Cast (Auto) (0-2) /lpf U Epithel Cells (Auto) (0-2) /hpf Urine Bacteria (Auto) (None Seen) Urine Comment Nasal Screen MRSA (PCR) Negative (Negative) Adenovirus (PCR) (NotDetected) Anaplasma Smear A. phagocytophilum DNA Babesia Smear Babesia microti DNA PCR B. pertussis DNA (PCR) (NotDetected) B.parapertussis DNA PCR (NotDetected) Lyme Disease Screen (Negative) C. pneumoniae DNA (PCR) (NotDetected) Coronavirus OC43 (PCR) (NotDetected) Coronavirus HKU1 (PCR) (NotDetected) Coronavirus 229E (PCR) (NotDetected) SARS-CoV-2 (PCR) (Negative) Coronavirus NL63 (PCR) (NotDetected) [place] DNA (PCR) Enterobacterales (PCR) (NotDetected) E. coli (PCR) (NotDetected) Human Metapneumovir PCR (NotDetected) Influenza Type A (PCR) (Neg) Influenza Type B (PCR) (Neg) M. pneumoniae (PCR) (NotDetected) Parainfluenza 1 (PCR) (NotDetected) Parainfluenza 2 (PCR) (NotDetected) Parainfluenza 3 (PCR) (NotDetected) Parainfluenza 4 (PCR) (NotDetected) RSV (RT-PCR) (Neg) RSV (PCR) (NotDetected) Entero/Rhino (PCR) (NotDetected) mcr-1 Colistin Res Gene PCR (NotDetected) blaIMP Car res Gene PCR (NotDetected) KPC-Carbap Res Gene PCR (NotDetected) blaNDM Car Res Gene PCR (NotDetected) OXA-48 Carbapenem Resis Gene (PCR) (NotDetected) blaVIM Car Res Gene PCR (NotDetected) CTX-M Gene Resistance (PCR) (NotDetected) Bld Cult ID Panel PCR (NotDetected) 08/17/25 08/17/25 08/17/25 Range/Units 08:07 08:06 08:06 WBC (4.8-10.8) K/ul RBC (4.20-5.40) M/uL Hgb (12.0-16.0) g/dl Hct (37.0-47.0) % MCV (80.0-100.0) fL MCH (25.0-34.0) pg MCHC (32.0-36.0) g/dL RDW Std Deviation (36.4-46.3) fL RDW Coeff of Sabino (11.5-14.5) % Plt Count (130-400) K/uL MPV (9.4-12.4) fL Immature Gran % (Auto) % Neut % (Auto) % Lymph % (Auto) % [place] % (Auto) % Eos % (Auto) % Baso % (Auto) % Neut # (Auto) (1.40-6.50) K/uL Lymph # (Auto) (1.20-3.40) K/uL [place] # (Auto) (0.11-0.59) K/uL Eos # (Auto) (0.00-0.50) K/uL Baso # (Auto) (0.00-0.20) K/uL Immature Gran # (Auto) (0.01-0.20) K/uL ESR (0-30) mm/hr PT (9.0-12.0) Seconds INR (0.9-1.1) APTT (21-31) Seconds PTT Ratio Heparin Anti-Xa, Unfract (0.3-0.7) IU/ml Sodium (136-145) mmol/L Potassium (3.5-5.1) mmol/L Chloride (98-107) mmol/L Carbon Dioxide (21-32) mmol/L Anion Gap (3-11) BUN (6-23) mg/dl Creatinine (0.6-1.2) mg/dl Est Cr Clr Drug Dosing ml/min eGFR BUN/Creatinine Ratio (10-20) Glucose (70-99(Fasting)) mg/dl POC Glucose (70-99) mg/dl Estimat Average Glucose mg/dl Hemoglobin A1c (4.5-5.6) % Lactate (0.4-2.0) mmol/L Calcium (8.6-10.3) mg/dl Magnesium (1.7-2.4) mg/dl Total Bilirubin (0.2-1.0) mg/dl Direct Bilirubin (0-0.2) mg/dl AST (13-39) U/L ALT (7-52) U/L Alkaline Phosphatase (34-104) U/L Troponin I High Sens (0-14) pg/ml C-Reactive Protein (0-0.5) mg/dl Total Protein (6.0-8.3) gm/dl Albumin (3.4-5.0) gm/dl Procalcitonin (0-0.5) ng/ml Urine Color Urine Appearance (Clear) Urine pH (4.5-7.5) Ur Specific [place] (1.000-1.030) Urine Protein (Negative) Urine Glucose (UA) (Negative) Urine Ketones (Negative) Urine Blood (Negative) Urine Nitrite (Negative) Urine Bilirubin (Negative) Urine Urobilinogen (Negative) Ur Leukocyte Esterase (Negative) Urine WBC (Auto) (0-5) /hpf Urine RBC (Auto) (0-2) /hpf U Hyaline Cast (Auto) (0-2) /lpf U Epithel Cells (Auto) (0-2) /hpf Urine Bacteria (Auto) (None Seen) Urine Comment Nasal Screen MRSA (PCR) (Negative) Adenovirus (PCR) (NotDetected) Anaplasma Smear A. phagocytophilum DNA Babesia Smear Babesia microti DNA PCR B. pertussis DNA (PCR) (NotDetected) B.parapertussis DNA PCR (NotDetected) Lyme Disease Screen (Negative) C. pneumoniae DNA (PCR) (NotDetected) Coronavirus OC43 (PCR) (NotDetected) Coronavirus HKU1 (PCR) (NotDetected) Coronavirus 229E (PCR) (NotDetected) SARS-CoV-2 (PCR) (Negative) Coronavirus NL63 (PCR) (NotDetected) [place] DNA (PCR) Enterobacterales (PCR) DETECTED A (NotDetected) E. coli (PCR) DETECTED A (NotDetected) Human Metapneumovir PCR (NotDetected) Influenza Type A (PCR) Not Detected (Neg) Influenza Type B (PCR) Not Detected Negative (Neg) M. pneumoniae (PCR) Not Detected (NotDetected) Parainfluenza 1 (PCR) Not Detected (NotDetected) Parainfluenza 2 (PCR) Not Detected (NotDetected) Parainfluenza 3 (PCR) Not Detected (NotDetected) Parainfluenza 4 (PCR) Not Detected (NotDetected) RSV (RT-PCR) Negative (Neg) RSV (PCR) Not Detected (NotDetected) Entero/Rhino (PCR) Not Detected (NotDetected) mcr-1 Colistin Res Gene PCR Not Detected (NotDetected) blaIMP Car res Gene PCR Not Detected (NotDetected) KPC-Carbap Res Gene PCR Not Detected (NotDetected) blaNDM Car Res Gene PCR Not Detected (NotDetected) OXA-48 Carbapenem Resis Gene (PCR) Not Detected (NotDetected) blaVIM Car Res Gene PCR Not Detected (NotDetected) CTX-M Gene Resistance (PCR) Not Detected (NotDetected) Bld Cult ID Panel PCR See PCR Comment (NotDetected) 08/17/25 08/17/25 Range/Units 08:06 08:06 WBC 22.27 H (4.8-10.8) K/ul RBC 4.89 (4.20-5.40) M/uL Hgb 14.3 (12.0-16.0) g/dl Hct 42.5 (37.0-47.0) % MCV 86.9 (80.0-100.0) fL MCH 29.2 (25.0-34.0) pg MCHC 33.6 (32.0-36.0) g/dL RDW Std Deviation 41.3 (36.4-46.3) fL RDW Coeff of Sabino 13.2 (11.5-14.5) % Plt Count 302 (130-400) K/uL MPV 9.5 (9.4-12.4) fL Immature Gran % (Auto) 0.5 % Neut % (Auto) 84.9 % Lymph % (Auto) 6.2 % [place] % (Auto) 8.2 % Eos % (Auto) 0.0 % Baso % (Auto) 0.2 % Neut # (Auto) 18.90 H (1.40-6.50) K/uL Lymph # (Auto) 1.37 (1.20-3.40) K/uL [place] # (Auto) 1.83 H (0.11-0.59) K/uL Eos # (Auto) 0.00 (0.00-0.50) K/uL Baso # (Auto) 0.05 (0.00-0.20) K/uL Immature Gran # (Auto) 0.12 (0.01-0.20) K/uL ESR 62 H (0-30) mm/hr PT 11.4 (9.0-12.0) Seconds INR 1.1 (0.9-1.1) APTT 26 (21-31) Seconds PTT Ratio 1.0 Heparin Anti-Xa, Unfract (0.3-0.7) IU/ml Sodium (136-145) mmol/L Potassium (3.5-5.1) mmol/L Chloride (98-107) mmol/L Carbon Dioxide (21-32) mmol/L Anion Gap (3-11) BUN (6-23) mg/dl Creatinine (0.6-1.2) mg/dl Est Cr Clr Drug Dosing ml/min eGFR BUN/Creatinine Ratio (10-20) Glucose (70-99(Fasting)) mg/dl POC Glucose (70-99) mg/dl Estimat Average Glucose mg/dl Hemoglobin A1c (4.5-5.6) % Lactate (0.4-2.0) mmol/L Calcium (8.6-10.3) mg/dl Magnesium (1.7-2.4) mg/dl Total Bilirubin (0.2-1.0) mg/dl Direct Bilirubin (0-0.2) mg/dl AST (13-39) U/L ALT (7-52) U/L Alkaline Phosphatase (34-104) U/L Troponin I High Sens (0-14) pg/ml C-Reactive Protein (0-0.5) mg/dl Total Protein (6.0-8.3) gm/dl Albumin (3.4-5.0) gm/dl Procalcitonin 0.13 (0-0.5) ng/ml Urine Color Urine Appearance (Clear) Urine pH (4.5-7.5) Ur Specific [place] (1.000-1.030) Urine Protein (Negative) Urine Glucose (UA) (Negative) Urine Ketones (Negative) Urine Blood (Negative) Urine Nitrite (Negative) Urine Bilirubin (Negative) Urine Urobilinogen (Negative) Ur Leukocyte Esterase (Negative) Urine WBC (Auto) (0-5) /hpf Urine RBC (Auto) (0-2) /hpf U Hyaline Cast (Auto) (0-2) /lpf U Epithel Cells (Auto) (0-2) /hpf Urine Bacteria (Auto) (None Seen) Urine Comment Nasal Screen MRSA (PCR) (Negative) Adenovirus (PCR) Not Detected (NotDetected) Anaplasma Smear See Comment A. phagocytophilum DNA Pending Babesia Smear See Comment Babesia microti DNA PCR Pending B. pertussis DNA (PCR) Not Detected (NotDetected) B.parapertussis DNA PCR Not Detected (NotDetected) Lyme Disease Screen Negative (Negative) C. pneumoniae DNA (PCR) Not Detected (NotDetected) Coronavirus OC43 (PCR) Not Detected (NotDetected) Coronavirus HKU1 (PCR) Not Detected (NotDetected) Coronavirus 229E (PCR) Not Detected (NotDetected) SARS-CoV-2 (PCR) Not Detected NEGATIVE (Negative) Coronavirus NL63 (PCR) Not Detected (NotDetected) Ehrlichia DNA (PCR) Pending Enterobacterales (PCR) (NotDetected) E. coli (PCR) (NotDetected) Human Metapneumovir PCR Not Detected (NotDetected) Influenza Type A (PCR) Negative (Neg) Influenza Type B (PCR) (Neg) M. pneumoniae (PCR) (NotDetected) Parainfluenza 1 (PCR) (NotDetected) Parainfluenza 2 (PCR) (NotDetected) Parainfluenza 3 (PCR) (NotDetected) Parainfluenza 4 (PCR) (NotDetected) RSV (RT-PCR) (Neg) RSV (PCR) (NotDetected) Entero/Rhino (PCR) (NotDetected) mcr-1 Colistin Res Gene PCR (NotDetected) blaIMP Car res Gene PCR (NotDetected) KPC-Carbap Res Gene PCR (NotDetected) blaNDM Car Res Gene PCR (NotDetected) OXA-48 Carbapenem Resis Gene (PCR) (NotDetected) blaVIM Car Res Gene PCR (NotDetected) CTX-M Gene Resistance (PCR) (NotDetected) Bld Cult ID Panel PCR (NotDetected) Medications Administered Current Inpatient Medications Acetaminophen (Acetaminophen 500 Mg Tab) 1,000 mg PO Q8H JOSSELINE Stop: 09/16/25 15:59 Last Admin: 08/18/25 07:10 Dose: 1,000 mg Dextrose (Dextrose 50% 50 Ml Syringe) 25 - 50 ml IV UD PRN; Protocol PRN Reason: Hypoglycemia Protocol Stop: 09/16/25 14:21 Glucagon (Glucagon For Inj 1 Mg Vial) 1 mg SQ UD PRN; Protocol PRN Reason: Hypoglycemia Protocol Stop: 09/16/25 14:21 Glucose (Glucose 40% Gel 15 Gm Tube) 15 - 30 gm PO UD PRN; Protocol PRN Reason: Hypoglycemia Protocol Stop: 09/16/25 14:21 Glucose (Glucose 10 Tab/Tube) 4 - 8 tab PO UD PRN; Protocol PRN Reason: Hypoglycemia Protocol Stop: 09/16/25 14:21 Heparin Sodium/Dextrose (Heparin 13491 Unit/500 Ml D5w) 25,000 units in 500 mls @ 30 mls/hr IV .[id number] JOSSELINE; Protocol Stop: 09/16/25 11:16 Last Admin: 08/18/25 09:08 Dose: Not Given Ceftriaxone Sodium (Rocephin) 2,000 mg in 50 mls @ 100 mls/hr IV Q24H [facility] Stop: 08/22/25 15:29 Last Infusion: 08/17/25 17:31 Dose: Infused Vancomycin HCl 1,500 mg/ (Sodium Chloride) 530 mls @ 200 mls/hr IV Q24H [facility] Stop: 08/20/25 11:59 Insulin Aspart (Insulin Aspart Per Unit Charge) 0 units SC ACHS [facility]SE[facility] Stop: 09/16/25 14:21 Last Admin: 08/18/25 09:13 Dose: 1 units Miscellaneous (Carbohydrates For Hypoglycemia ) 15 - 30 gm PO UD PRN PRN Reason: Hypoglycemia Protocol Stop: 09/16/25 14:21 Miscellaneous Information (Vancomycin Consult Active) 1 each N/A UD PRN PRN Reason: Consult Stop: 09/16/25 16:47 Rosuvastatin Calcium (Rosuvastatin Calcium 20 Mg Tab) 20 mg PO DAILY JOSSELINE Stop: 09/17/25 08:59 Tramadol HCl (Tramadol Hcl 50 Mg Tablet) 50 mg PO Q6H PRN PRN Reason: Pain Stop: 09/16/25 14:21
[2025-08-18] MEDS: ROSUVASTATIN CALCIUM 20 MG TAB PO SCH (10:38)
[2025-08-18] MEDS ORDERED: VANCOMYCIN HCL 1,500 MG in SODIUM CHLORIDE 0.9% 500 ML IV SCH (12:00)
[2025-08-18 15:06] LABS: ANTI-Xa, UFH(UnfractionatedHep 0.21 IU/ml (0.3-0.7)
[2025-08-18] MEDS: SODIUM CHLORIDE 0.9% 1,000 ML IV ONE (16:15)
[2025-08-18 22:11] LABS: ANTI-Xa, UFH(UnfractionatedHep 0.18 IU/ml (0.3-0.7)
[2025-08-19 05:53] LABS: Hematocrit (blood only) 34.5 % (37.0-47.0); Hemoglobin 11.0 g/dl (12.0-16.0); Mean Corpuscular Hemoglobin 28.5 pg (25.0-34.0); Mean Corpuscular Volume 89.4 fL (80.0-100.0); Platelet Count 212 K/uL (130-400); RDW Standard Deviation 42.5 fL (36.4-46.3); Red Blood Count 3.86 M/uL (4.20-5.40); White Blood Count 9.36 K/ul (4.8-10.8)
[2025-08-19 06:12] LABS: Anion Gap 6.0 (3-11); Blood Urea Nitrogen 13.0 mg/dl (6-23); Calcium 8.7 mg/dl (8.6-10.3); Carbon Dioxide 29.0 mmol/L (21-32); Chloride 103.0 mmol/L (98-107); Creatinine Clr Calc Pharmacy 110.8 ml/min; Glucose 102.0 mg/dl (70-99(Fasting)); Magnesium 2.1 mg/dl (1.7-2.4); Potassium 3.2 mmol/L (3.5-5.1); Sodium 138.0 mmol/L (136-145)
[2025-08-19 06:15] LABS: ANTI-Xa, UFH(UnfractionatedHep 0.30 IU/ml (0.3-0.7)
[2025-08-19] MEDS: POTASSIUM CHLORIDE CRTAB 20 MEQ TABCR PO STA (09:45)
[2025-08-19] MEDS: APIXABAN 5 MG TABLET PO SCH (13:14)
[2025-08-20 07:05] LABS: Hematocrit (blood only) 34.7 % (37.0-47.0); Hemoglobin 11.8 g/dl (12.0-16.0); Mean Corpuscular Hemoglobin 29.7 pg (25.0-34.0); Mean Corpuscular Volume 87.4 fL (80.0-100.0); Platelet Count 275 K/uL (130-400); RDW Standard Deviation 41.1 fL (36.4-46.3); Red Blood Count 3.97 M/uL (4.20-5.40); White Blood Count 7.01 K/ul (4.8-10.8)
[2025-08-20 07:09] VITALS: RESP 18
[2025-08-20 07:29] LABS: Anion Gap 9.0 (3-11); Blood Urea Nitrogen 15.0 mg/dl (6-23); Calcium 9.0 mg/dl (8.6-10.3); Carbon Dioxide 27.0 mmol/L (21-32); Chloride 104.0 mmol/L (98-107); Creatinine Clr Calc Pharmacy 99.7 ml/min; Glucose 94.0 mg/dl (70-99(Fasting)); Magnesium 2.1 mg/dl (1.7-2.4); Potassium 3.4 mmol/L (3.5-5.1); Sodium 140.0 mmol/L (136-145)
[2025-08-20 07:52] LABS: ANTI-Xa, UFH(UnfractionatedHep 1.06 IU/ml (0.3-0.7)
[2025-08-20] MEDS: POTASSIUM CHLORIDE CRTAB 20 MEQ TABCR PO STA (08:55)
[2025-08-20 11:25] VITALS: TEMP 98.1; O2SAT 97
--- NOTE | 2025-08-20 12:56 | Hospitalist Progress Note ---
Date of Service August 19, 2025 Assessment & Plan (1) Sepsis: (2) Bacteremia: (3) Pyelonephritis: Plan: Patient presenting from home for evaluation of left knee pain (behind the knee). Upon presentation, patient febrile, and tachycardic in the 130s. Labs show WBC 22K, ESR 62, CRP 7.4. BioFire negative, Lyme testing negative, initial Anaplasma and Babesia negative. CXR unremarkable. CTA chest negative for PE Left knee x-ray shows a mild joint effusion, otherwise unremarkable. LLE Doppler shows small amount of nonocclusive DVT left popliteal vein. Was started on iv heparin. Switch to Eliquis. Patient reports daily heavy NSAID use - advised she will need to avoid NSAIDs due to anticoagulation. 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 The upper portion of this ureter also demonstrates marked wall thickening and inflammatory fat stranding, which may be due to infective ureteritis, and with urothelial carcinoma not excluded. A striated area of hypoenhancement at the inferior left kidney, additionally is concerning for pyelonephritis. Received IV zosyn in the ED. Was transitioned to ceftriaxone and vancomycin on admission. 08/18 Currently pt still febrile and tachycardic. Final results of cultures pending Repeat blood cultures ordered Will need to treat acute infection, then plan to involve urology for further assessment given abnormal CT findings Pt reports she was seen at [facility] for urology in the past, not recently. 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 Pt aware to follow up w/ urology. 08/19 Pt is feeling well. Afebrile, no longer tachycardic. WBC 9K (normalized) Diabetes HgbA1c 5.5 % 12/2024, current 5.8% Hold metformin and utilize NovoLog per protocol while hospitalized Dyslipidemia - continue home statin Admission and Anticipated Discharge Date Admission Date: August 17, 2025 Subjective Pt seen in follow up of sepsis, bacteremia, pyelonephritis Presented with knee pain (behind the knee), was found to have small DVT Currently sitting up in chair in NAD, feeling well Afebrile now Denies any chest pain, shortness of breath or abd. pain. 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 Informed her she will need urology follow up- understands the pls. Review of Systems Review of Systems: All systems reviewed & are unremarkable except as noted in Subjective Physical Exam Physical Exam: Constitutional: WD/WN F in NAD Respiratory: normal respiratory effort, lungs nichole ar to auscultation Cardiovascular: Rate/Rhythm: regul ar rhythm and Ext remities: no edema Gastrointestinal ( Abdomen): normal bowel sound s, soft, nontender Skin: no rashes, warm an d dry Neurologic: awake, alert, answ ers appropriately, pleasant, speech fluent, moves extr emities Psychiatric: A+Ox3, euthymic af fect Results & Data Results & Data Vital Signs (Past 12 Hours) Medications Administered Current Inpatient Medications Acetaminophen (Acetaminophen 500 Mg Tab) 1,000 mg PO Q8H [facility] Stop: 09/16/25 15:59 Last Admin: 08/20/25 08:31 Dose: 1,000 mg Apixaban (Apixaban 5 Mg Tablet) 10 mg PO BID [facility] Stop: 08/25/25 21:01 Last Admin: 08/20/25 08:32 Dose: 10 mg Dextrose (Dextrose 50% 50 Ml Syringe) 25 - 50 ml IV UD PRN; Protocol PRN Reason: Hypoglycemia Protocol Stop: 09/16/25 14:21 Glucagon (Glucagon For Inj 1 Mg Vial) 1 mg SQ UD PRN; Protocol PRN Reason: Hypoglycemia Protocol Stop: 09/16/25 14:21 Glucose (Glucose 40% Gel 15 Gm Tube) 15 - 30 gm PO UD PRN; Protocol PRN Reason: Hypoglycemia Protocol Stop: 09/16/25 14:21 Glucose (Glucose 10 Tab/Tube) 4 - 8 tab PO UD PRN; Protocol PRN Reason: Hypoglycemia Protocol Stop: 09/16/25 14:21 Ceftriaxone Sodium (Rocephin) 2,000 mg in 50 mls @ 100 mls/hr IV Q24H [facility] Stop: 08/22/25 15:29 Last Infusion: 08/19/25 16:06 Dose: Infused Insulin Aspart (Insulin Aspart Per Unit Charge) 0 units SC ACHS [facility]OSSE[facility] Stop: 09/16/25 14:21 Last Admin: 08/20/25 09:05 Dose: Not Given Miscellaneous (Carbohydrates For Hypoglycemia ) 15 - 30 gm PO UD PRN PRN Reason: Hypoglycemia Protocol Stop: 09/16/25 14:21 Rosuvastatin Calcium (Rosuvastatin Calcium 20 Mg Tab) 20 mg PO DAILY JOSSELINE Stop: 09/17/25 08:59 Last Admin: 08/20/25 08:32 Dose: 20 mg Tramadol HCl (Tramadol Hcl 50 Mg Tablet) 50 mg PO Q6H PRN PRN Reason: Pain Stop: 09/16/25 14:21
--- NOTE | 2025-08-20 15:06 | Discharge Summary ---
Date of Service August 20, 2025 Admission HPI Per Admitting Provider 65-year-old female with PMH HLD, prediabetes, and other problems listed below who presents to the ED for evaluation of left knee pain. Patient reports her symptoms began 3 days ago. She was seen at her PCPs office, patient suspected she had a Lyons's cyst. Ultrasound was ordered however has not been completed. Patient presented to the ED due to ongoing left knee pain. Yesterday patient reports she had flulike symptoms with generalized fatigue, feeling feverish, and poor appetite. Patient reports a 2-hour car ride this previous weekend, denies any other recent extended travel. No known sick contacts. Pain is located in the left posterior knee. She denies chest pain, palpitations, shortness of breath. No lightheadedness, dizziness, diaphoresis, syncopal events. Denies abdominal pain, vomiting, diarrhea. No urinary symptoms. Upon presentation, patient had low-grade temp of 37.9 and tachycardic in the 130s. Labs show WBC 22K, ESR 62, CRP 7.4. BioFire negative, Lyme testing negative, initial Anaplasma and Babesia negative. CXR unremarkable. Left knee x-ray shows a mild joint effusion, otherwise unremarkable. LLE Doppler shows small amount of nonocclusive DVT left popliteal vein. patient was given Tylenol, IV Zofran, IV Zosyn, IVF. Admission Exam Per Admitting Provider Constitutional: WD/WN, vitals as above no acute distress Respiratory: normal respiratory effort, lungs clear to auscultation Cardiovascular: Rate/Rhythm: regular rhythm and + tachycardic Vessels: normal peripheral pulses Extremities: no edema Gastrointestinal (Abdomen): normal bowel sounds, soft, nontender, no hepatosplenomegaly Skin: no rashes, warm and dry Neurologic: no focal motor deficits Psychiatric: A+Ox3, euthymic affect Principal Diagnosis (1) Sepsis: (2) Bacteremia: (3) Pyelonephritis: (4) DVT Discharge Exam Constitutional: WD/WN F in NAD Respiratory: normal respiratory effort, lungs clear to auscultation Cardiovascular: Rate/Rhythm: regular rhythm and Extremities: no edema Gastrointestinal (Abdomen): normal bowel sounds, soft, nontender Skin: no rashes, warm and dry Neurologic: awake, alert, answers appropriately, pleasant, speech fluent, moves extremities Psychiatric: A+Ox3, euthymic affect Discharge Data Allergies Allergy/AdvReac Type Severity Reaction Status Date / Time No Known Allergies Allergy Mild Verified 02/27/08 13:09 Consultations 08/17/25 10:13 ED Decision to Admit Stat Ordered Studies 08/17/25 07:55 US venous doppler LE LT Stat FINDINGS: There is a small amount of nonocclusive thrombus adjacent to valve proximal left popliteal vein. No other evidence of DVT seen at the left lower extremity. IMPRESSION: Small amount of nonocclusive DVT left popliteal vein. 08/17/25 10:52 CT angio chest PE protocol Urgent FINDINGS: No pulmonary emboli are identified. There is no thoracic aortic dissection. The heart is mildly enlarged. There is no pericardial effusion. No enlarged thoracic lymph nodes are present. The central airways are patent. There is no pneumothorax or pleural effusion. There is no consolidation. No suspicious pulmonary nodules are present. Visualized portions of the upper abdomen are unre markable. IMPRESSION: 1. No pulmonary emboli identified. 2. No acute intrathoracic findings. 08/17/25 16:46 CT Abd and Pelvis [CT abd pelvis IV con only] Urgent FINDINGS: Lower chest: No consolidation. No pleural effusion or pneumothorax. Liver: No suspicious liver lesions. Portal veins appear patent. Gallbladder: No gallstones. No evidence of acute cholecystitis. Spleen: Normal size. Pancreas: No suspicious pancreatic lesions. The pancreatic duct is not dilated. Adrenal glands: No adrenal nodules. 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 The superior moiety demonstrates severe atrophy with near complete loss of the renal cortex, and a prominently dilated pelvocaliceal system. The upper moiety ureter is also markedly dilated throughout. The upper portion of this ureter demonstrates prominent wall thickening, with severe stenosis of the lumen, and inflammatory fat stranding. 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 The left kidney demonstrates no hydronephrosis. There is a prominent area of striated hypoenhancement at the inferior pole of the left kidney. Bladder / Pelvic organs: Unremarkable. Bowel: No bowel obstruction. No abnormal bowel wall thickening. The appendix is unremarkable. Lymph nodes: No retroperitoneal, mesenteric, or pelvic lymphadenopathy. Peritoneum / Retroperitoneum: No free fluid or air within the abdomen. Vessels: No infrarenal aortic aneurysm. Bones and soft tissues: No suspicious lesion in the bones. 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 The upper portion of this ureter also demonstrates marked wall thickening and inflammatory fat stranding, which may be due to infective ureteritis, and with urothelial carcinoma not excluded. A striated area of hypoenhancement at the inferior left kidney, additionally is concerning for pyelonephritis. Hospital Course (1) Sepsis: (2) Bacteremia: (3) Pyelonephritis: Patient presenting from home for evaluation of left knee pain (behind the knee). Upon presentation, patient febrile, and tachycardic in the 130s. Labs show WBC 22K, ESR 62, CRP 7.4. BioFire negative, Lyme testing negative, initial Anaplasma and Babesia negative. CXR unremarkable. CTA chest negative for PE Left knee x-ray shows a mild joint effusion, otherwise unremarkable. LLE Doppler shows small amount of nonocclusive DVT left popliteal vein. Was started on iv heparin. Switched to Eliquis. Patient reports daily heavy NSAID use - advised she will need to avoid NSAIDs due to anticoagulation. 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 The upper portion of this ureter also demonstrates marked wall thickening and inflammatory fat stranding, which may be due to infective ureteritis, and with urothelial carcinoma not excluded. A striated area of hypoenhancement at the inferior left kidney, additionally is concerning for pyelonephritis. Received IV zosyn in the ED. Was transitioned to ceftriaxone and vancomycin on admission. 08/18 Currently pt still febrile and tachycardic. Will need to treat acute infection, then plan to involve urology for further assessment given abnormal CT findings Pt reports she was seen at [facility] for urology in the past, not recently. 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 Pt aware to follow up w/ urology. 08/19 Pt is feeling well. Afebrile, no longer tachycardic. WBC 9K (normalized) Diabetes HgbA1c 5.5 % 12/2024, current 5.8% resume metformin on discharge Dyslipidemia - continue home statin Total Time Total Time Spent Total Time Spent (In Minutes): 40 Discharge Plan Discharge Items Patient Disposition: Home - Self-Care Reason For Visit: LEFT KNEE PAIN Discharge Diagnosis: (1) Sepsis: (2) Bacteremia: (3) Pyelonephritis: (4) DVT Condition on Discharge: Fair Activity: Per Instructions section Non-emergency contact: Primary Care Provider and Urologist Call non-emergency contact if: you have any medication questions and your symptoms worsen Follow-up/Referrals: Yulissa Abraham PA-C [Primary Care Provider] - (Date & Time 08/24/2025 8:00 AM Provider: Yulissa Abraham PA-C [facility]) Diet: Carb Consistent or DM2 and Heart Healthy Addtl Attending Provider Instructions: Follow up with primary care doctor and urologist. The appointment was scheduled for you for 08/24/2025. Finish antibiotic course as prescribed. Pending Studies at Discharge: Yes Studies:: results of repeat blood cultures Stand-Alone Forms: My [facility] [employer], Smoking Cessation Medications and DC Order Prescriptions: New Eliquis 5 mg tablet 5 mg PO BID Qty: 70 0RF Rx Instructions: Take 2 tabs (10 mg) twice a day for total of 7 days, then take 1 tab (5 mg) twice a day Advanced Probiotic 625 mg (10 billion cell) Capsule 1 cap PO DAILY Qty: 10 0RF ciprofloxacin HCl 500 mg tablet 500 mg PO BID 10 Days Qty: 20 0RF Continued furosemide 20 mg Tablet 20 mg PO UD PRN (Reason: Edema) Patient Comments: 08/17-- no fill history unable to verify metformin 500 mg Tablet 500 mg PO DAILY cyanocobalamin (vitamin B-12) 1,000 mcg Tablet 1,000 mcg PO DAILY tramadol 50 mg Tablet 50 mg PO Q6H PRN (Reason: Pain) rosuvastatin 20 mg tablet 20 mg PO DAILY Discharge Orders: Discharge Order (Routine); Ordered 08/20/25 Ordered By: Kian Porter Admission Data Admit Date/Time: 08/17/25 10:23 Attending Provider: Kian Porter Admit Provider: Eduin Whalen Primary Care Provider: Yulissa Abraham Other Providers: Eduin Whalen
[2025-08-20] MEDS: ADVANCED PROBIOTIC 625 MG CAPSULE PO SCH (15:17)
[2025-08-20 15:40] VITALS: BP 138/87; PULSE 99
--- NOTE | 2025-08-22 08:37 | Coding Query ---
SEPSIS To promote full compliance with coding requirements relating to patient care, physician participation is requested in all cases of drier take off tender uncertainty. Please assist us with the question(s) below: In responding to this query, please exercise your independent professional judgement. The fact that a question is asked does not imply that any particular answer is desired or expected. We appreciate your clarification on this issue. Throughout the medical record, you have clearly documented a localized infection and your patient has clinical evidence of a generalized sepsis or severe sepsis. The term urosepsis is a nonspecific entity and is coded as an UTI. If the patient has sepsis, severe sepsis, from an urinary source or some other source, please clarify in your response below. The medical record reflects the following clinical findings: (With dates as appropriate) (Body temperature of >38.3 C(101 F) or <36 C(96.8F), pulse >90/minute, respirations >20/minute, WBC count >12,000 or <4,000, altered mental status, significant edema or positive fluid balance, hyperglycemia without diabetes, hypotension, metabolic acidosis (elev. lactate level, anion gap or reduced blood pH), shock, positive blood culture (enter organism) ____ ( )Bacteremia (Nonspecific laboratory finding of bacteria in the blood) Specify Organism: ( ) Present on Admission ( ) Not present on admission ( ) Unable to clinically determine ( ) Septicemia (Systemic disease associated with the presence of pathogenic microorganisms in the blood): Specify Organism: ( ) Present on Admission ( ) Not present on admission ( ) Unable to clinically determine ( x) Sepsis Specify Organism: E. coli Specify Associated Condition/Diagnosis: ( ) Present on Admission ( ) Not present on admission ( ) Unable to clinically determine ( ) Severe Sepsis (Sepsis associated with acute organ dysfunction) Specify Organism: Specify Associated Condition/Diagnosis: ( ) Present on Admission ( ) Not present on admission ( ) Unable to clinically determine ( ) Septic Shock (Severe sepsis with acute circulatory failure, unexplained by other causes) ( ) Present on Admission ( ) Not present on admission ( ) Unable to clinically determine ( ) Other, patient has: MTDD
== END 2025-08-20 17:07 | disposition home or self-care (01) | DRG 872 ==
LOC: ED 07:29 → EDINP 10:23 → SUATTDRO 10:23 → 2W 13:56